=== PATIENT | female | born 1990 | race Caucasian/White ===

== ENCOUNTER → 2018-05-14 23:35 | Outpatient (CLI) | payer BC, SELFPAY ==
[2018-05-14 14:52] VITALS: BMI 22.6
[2018-05-14 23:55] LABS: ALB/GLOB Ratio 1.1 RATIO (0.9-2.4); AST(SGOT) 14 U/L (15-37); Alanine Aminotransfer ALT/SGPT 23 U/L (13-56); Albumin, Serum 4.1 g/dL (3.2-5.0); Alkaline Phosphatase 53 U/L (45-117); Anion Gap 3 (5-15); BUN 9 mg/dL (7-18); BUN/Creat Ratio 11.9 RATIO (10-20); Calcium,Total 8.7 mg/dL (8.5-10.1); Chloride 106 mmol/L (98-107); Creatinine, Serum 0.76 mg/dL (0.55-1.02); EST Glomerular Filtration Rate 99 mL/min (>60); Est Glom Filt Rate - Afr Amer 119 mL/min (>60); Globulin 3.8 g/dL (2.2-4.2); Glucose 92 mg/dL (74-106); Potassium 4.1 mmol/L (3.5-5.1); Protein, Total 7.9 g/dL (6.4-8.2); Sodium Level 137 mmol/L (136-145)
[2018-05-15] LABS: Absolute Neutrophil Count 5.3 X10^3/uL (2.0-7.7); Basophil# 0.05 X10^3/uL; Basophil% 0.6 % (0-1); Eosinophil# 0.23 X10^3/uL; Eosinophils% 2.9 % (0-5); Hematocrit 40.7 % (37-47); Hemoglobin 13.8 g/dl (12.0-15.0); Lymphocyte % 21.7 % (19-41); Mean Corp Hgb Conc 33.9 g/gl (32-36); Mean Corpuscular Hgb 31.8 pg (27.0-32.0); Mean Corpuscular Volume 93.8 fL (81-99); Mean Platelet Vol. 11.4 fl (6.2-12.0); Monocyte# 0.55 X10^3/uL; Neutrophil # 5.29 X10^3/uL (2.7-7.7); Neutrophil % 67.5 % (47-70); POSITIVE COUNT NO; POSITIVE DIFFERENTIAL NO; POSITIVE MORPHOLOGY NO; Platelet Count 244 K/mm3 (150-450); RBC Distribution Width CV 12.9 % (11.6-14.6); RBC Distribution Width SD 43.3 fl (35.1-43.9); Red Blood Count 4.34 M/mm3 (4.2-5.4); White Blood Count 7.8 K/mm3 (4.4-11.0)
== END ==
PROVIDERS: Referring Provider Nurse Practitioner; Visit Provider Nurse Practitioner
DX: F41.0 Panic disorder [episodic paroxysmal anxiety] (principal)
CPT/HCPCS: 80053; 85025

== ENCOUNTER → 2020-08-19 | Outpatient (CLI) | payer MEDICAID, SELFPAY ==
[2020-08-19 18:45] VITALS: BMI 22.3
[2020-08-19 21:53] LABS: Absolute Lymphocyte Count 2.78 X10^3/uL (0.83-4.51); Absolute Neutrophil Count 3.9 X10^3/uL (2.0-7.7); Basophil# 0.08 X10^3/uL; Eosinophil# 0.39 X10^3/uL; Hematocrit 36.4 % (37-47); Hemoglobin 12.2 g/dL (12.0-15.0); Lymphocyte # 2.78 X10^3/ul (4.0); Lymphocyte % 35.9 % (19-41); Mean Corp Hgb Conc 33.5 g/dL (32-36); Mean Corpuscular Hgb 31.5 pg (27.0-32.0); Mean Corpuscular Volume 94.1 fL (81-99); Mean Platelet Vol. 11.5 fl (6.2-12.0); Monocyte# 0.56 X10^3/uL; Monocyte% 7.2 % (0-10); NRBC Flagged by Analyzer 0 % (0-5); Neutrophil # 3.93 X10^3/uL (2.7-7.7); Neutrophil % 50.8 % (47-70); Platelet Count 246 K/mm3 (150-450); RBC Distribution Width CV 13.4 % (11.6-14.6); RBC Distribution Width SD 46.3 fl (35.1-43.9); Red Blood Count 3.87 M/mm3 (4.2-5.4); White Blood Count 7.8 K/mm3 (4.4-11.0)
[2020-08-19 22:08] LABS: ALB/GLOB Ratio 1.1 RATIO (0.9-2.4); AST(SGOT) 13 U/L (15-37); Alanine Aminotransfer ALT/SGPT 31 U/L (13-56); Albumin, Serum 3.7 g/dL (3.2-5.0); Alkaline Phosphatase 57 U/L (45-117); Anion Gap 6 (5-15); BUN 12 mg/dL (7-18); BUN/Creat Ratio 15.1 RATIO (10-20); Calcium,Total 8.7 mg/dL (8.5-10.1); Chloride 109 mmol/L (98-107); Creatinine, Serum 0.79 mg/dL (0.55-1.02); EST Glomerular Filtration Rate 92 mL/min (>60); Est Glom Filt Rate - Afr Amer 111 mL/min (>60); Globulin 3.4 g/dL (2.2-4.2); Glucose 90 mg/dL (74-106); Potassium 3.9 mmol/L (3.5-5.1); Protein, Total 7.1 g/dL (6.4-8.2); Sodium Level 140 mmol/L (136-145)
== END | disposition home or self-care (01) ==
PROVIDERS: Referring Provider Nurse Practitioner; Visit Provider Nurse Practitioner
DX: N63.20 Unspecified lump in the left breast, unspecified quadrant (principal); F41.0 Panic disorder [episodic paroxysmal anxiety]; F41.1 Generalized anxiety disorder
CPT/HCPCS: 80053; 85025

== ENCOUNTER → 2024-08-19 | Outpatient (CLI) | payer OTHER, MEDICAID, SELFPAY ==
--- NOTE | 2024-08-19 08:00 | CT_ITS ---
PROCEDURE: CT scan of the temporal bones. TECHNIQUE: Multiple axial tomographic images were obtained without intravenous contrast administration. Coronal and sagittal reconstruction was obtained as well. COMPARISON: None. FINDINGS: The temporal bones are unremarkable. The middle ear cavity is unremarkable. The internal auditory canal is unremarkable. There is evidence of mucosal retention cyst or polyp at the base of the right maxillary sinus. The visualized portions of the orbits are unremarkable. CT/Orb Sella Post Fossa Ear w/o IMPRESSION: Unremarkable examination of the temporal bones. One or more dose reduction techniques were used (e.g., Automated exposure contr ol, adjustment of the mA and/or kV according to patient size, use of iterative reconstruction technique). Reading Location: [facility]
== END | disposition home or self-care (01) ==
LOC: CT 07:56
PROVIDERS: PCP Nurse Practitioner; Referring Provider Otolaryngology; Visit Provider Otolaryngology
DX: H93.11 Tinnitus, right ear (principal)
CPT/HCPCS: 70480

== ENCOUNTER → 2025-02-02 | Outpatient (CLI) | payer OTHER, SELFPAY ==
--- OUTSIDE RECORDS SUMMARY | 2025-02-02 22:42 | XMS RPT_ITS | CCD ---
Author Organization [facility] Care Team Providers [place] Reporter Name Role Phone Bhargav Vang Primary Care Provider [phone] Bobby Cabrales DO Primary Care Provider Bhargav Vang Primary Care Provider [phone] Bobby Cabrales DO Primary Care Provider ALENA SPARKS Referring Unavailable PROVIDER, UNKNOWN Primary Care Unavailable BOBBY CABRALES Primary Care Unavailable ALENA SPARKS Attending Unavailable BOBBY CABRALES Primary Care Unavailable Dean [employer] DRIVER, Bhargav Primary Care Unavailable Marissa Baca Referring UnavailMarissa Keane Attending Unavaillakshmi Vang [employer]IVER-C, Bhargav Attending Provider Kay VEGA, Dr. Ernst Attending Provider Dr. Marissa Baca MD Referring Provider Dean [employer]-C, Bhargav Primary Care Provider Unavailable Primary Care Provider UnavailVICTOR HUGO Larsen Attending Unavailable JAMES ZUNIGA Referring Unavailable JAMES ZUNIGA Attending Unavailable MARISSA BACA Referring Unavaila ble JAMES ZUNIGA Attending Unavailable BHARGAV VANG Referring Unavailable BHARGAV VANG Attending Unavailable DEAN, BHARGAV Primary Care Unavailable VANG, BHARGAV Primary Care Unavailable VANG BHARGAV Referring Unavailable BHARGAV VANG Attending Unavailable Allergies Allergy Classification Reported Allergen(s) Allergy Type Date of Onset Reaction(s) Facility (1 source) dexchlorpheniramine Drug Allergy 3 [facility] Repository (1 source) Dextromethorphan Drug Allergy 3 [facility] Rep[facility] (1 source) Phenylephrine Drug Allergy 3 [facility] (1 source) dexchlorpheniramine Drug Allergy 3 [facility] (1 source) Dextromethorphan Drug Allergy 3 [facility] (1 source) Phenylephrine Drug Allergy 3 [facility] Medications Current Medications Medication Drug Class(es) Dates Sig (Normalized) Sig (Original) [id number] actuat albuterol 0.09 mg/actuat metered dose inhaler (11 sources) beta2-Adrenergic Agonist Start: 08-25-2022 take 2 puff(s) by inhalation every four hours as needed for wheezing albuterol HFA (PROAIR HFA) 90 mcg/actuation inhaler Indications: SOB (shortness of breath) Inhale 2 Puffs as instructed every 4 hours as needed for wheezing/shortnes s of breath. 2 Each 1 08/25/2022 Active Start: 02-17-2022 End: 02-16-2023 Albuterol Sulfate (Ventolin Hfa) 90 mcg/actuation HFA aerosol inhaler Active 2 NMA INHALATION Q4H as needed for asthma 8.5 February 16, 2023 6:43pm Comment on above: Inhale 2 Puffs as in structed every 4 hours as needed for wheezing/shortness of breath. amoxicillin 875 mg / clavulanate 125 mg oral tablet (3 sources) Penicillin-class Antibacterial Start: 07-15-19 End: 07-22-19 24 take 1 tablet by mouth twice daily amoxicillin-clavu lanate potassium (AUGMENTIN) 875-125 mg per tablet Indications: Acute otitis media, left Take 1 tablet by mouth two times a day for 7 days. 14 tablet 0 07/15/2023 07/22/2023 Active take 1 tablet by deisi th twice daily amoxicillin-clavulanate (AUGMENTIN) 875- 125 MG per tablet Take 1 tablet by mouth 2 times daily 0 Active Comment on above: Take 1 tablet by deisi th two times a day for 7 days. 60 actuat budesonide 0.09 mg/actuat dry powder inhaler (10 sources) Corticosteroid Start: 12-06-19 take 2 puff(s) by inhalation twice daily PULMICORT FLEXHALER 90 mcg/actuation aepb Indications: SOB (shortness of breath) INHALE 2 PUFFS INSTRUCTED TWICE DAILY. 6 Each 12/05/2022 Active Start: 08-25-2022 End: 11-23-2022 take 2 puff(s) by inhalation twice daily budesonide (PULMICORT FLEXHALER) 90 mcg/actuation aepb Indications: SOB (shortness of breath) Inhale 2 Puffs as instructed twice daily. 6 Each 0 08/25/2022 11/23/2022 Active Comment on above: Inhale 2 Puffs as in structed twice daily. Calcium Carbonate (9 sources) calcium carbonat e (TUMS ORAL) Take by mouth as needed. Active calcium carbonat e (TUMS ORAL) Take by mouth as needed. 0 Active Comment on above: Take by mouth as nee ded. cetirizine hydrochloride 10 mg oral tablet (1 source) Histamine-1 Receptor Antagonist Start: 10-03-19 End: 06-29-19 24 take 1 tablet by mouth once daily cetirizine (ZYRTEC) 10 mg tablet Indications: SOB (shortness of breath) Take 1 tablet by mouth once daily. 90 tablet 2 10/02/2022 06/29/2023 Active Comment on above: Take 1 tablet by deisi th once daily. hydrOXYzine hydrochloride 10 mg oral tablet (13 sources) Antihistamine Start: 02-18-20 End: 03-04-20 24 take 1 tablet by mouth three to four times daily as needed for anxiety Hydroxyzine Hcl 10 mg tablet Active 10 mg PO 3 to 4 times per day as needed for anxiety 60 March 04, 2024 6:23pm Comment on above: TAKE 1 TABLET BY DEISI TH THREE TO FOUR TIMES DAILY NEEDED FOR ANXIETY ibuprofen 600 mg oral tablet (11 sources) Nonsteroidal Anti-inflammatory Drug Start: 08-27-19 17 take 1 tablet by mouth every eight hours as needed ibuprofen (MOTRIN) 600 mg tablet Take 1 tablet by mouth every 8 hours as needed. 08/26/2016 Active Comment on above: Take 1 tablet by deisi th every 8 hours as needed. oseltamivir 75 mg oral capsule (2 sources) Neuraminidase Inhibitor Start: 08-27-19 17 take 1 capsule by mouth twice daily oseltamivir (TAMIFLU) 75 MG capsule Take 1 capsule by mouth 2 times daily 10 capsule 0 08/26/2016 Active sertraline 100 mg oral tablet (20 sources) Serotonin Reuptake Inhibitor Start: 02-18-20 End: 02-18-20 take 2 tablets by mouth once daily Sertraline 50 mg tablet Discontinued 100 mg PO daily February 17, 2022 12:00am February 17, 2022 8:02pm Start: 04-08-2021 End: 02-17-2022 Sertraline 50 mg tablet Disc ontinued 75 mg PO daily 45 April 08, 2021 4:49pm February 17, 2022 5:54pm Start: 11-17-2020 End: 03-04-2024 take 1 tablet by mouth once daily Sertraline 100 mg tablet Active 100 mg PO daily March 04, 2024 6:23pm Start: 01-30-2018 End: 04-08-2021 take 1 tablet by mouth once daily Sertraline 50 mg tablet Discontinued 50 mg PO daily August 19, 2020 7:47pm April 08, 2021 4:46pm Start: 01-30-2018 End: 01-30-2018 take 50 mg by mouth once daily Sertraline (Zoloft) 20 mg/mL concentrate Discontinued 50 mg PO daily January 30, 2018 12:00am January 30, 2018 3:43pm take 1 tablet by deisi th once daily Comment on above: Take 100 mg by mouth once daily. Completed/Discontinued Medications Medication Drug Class(es) Dates Sig (Normalized) Sig (Original) acetaminophen 325 mg oral tablet (1 source) Start: 01-24-2021 End: 01-24-2021 acetaminophen (TYLENOL) tablet 650 mg ALPRAZolam 0.5 mg oral tablet (2 sources) Benzodiazepine Start: 01-30-2018 End: 05-14-2018 take 1 tablet by mouth once daily as needed for anxiety Alprazolam 0.5 mg tablet Discontinued 0.5 mg PO daily as needed for anxiety January 30, 2018 3:55pm May 14, 2018 3:58pm amoxicillin 875 mg oral tablet (2 sources) Penicillin-class Antibacterial Start: 06-12-2023 End: 01-18-2024 take 1 tablet by mouth twice daily Amoxicillin 875 mg tablet Discontinued 875 mg PO TWICE A DAY June 12, 2023 4:41pm January 18, 2024 5:10pm Start: 05-10-2020 End: 08-19-2020 take 1 tablet by mouth twice daily Amoxicillin 875 mg tablet Discontinued 875 mg PO TWICE A DAY May 10, 2020 1:00am August 19, 2020 7:46pm azithromycin 250 mg oral tablet (2 sources) Macrolide Antimicrobial Start: 06-10-2024 End: 06-15-2024 take 2 tablets by mouth once daily, then take 1 tablet by mouth once daily at mealtime Azithromycin 250 mg tablet Discontinued 250 mg PO daily 11 27June 10, 2024 1:00am June 14, 2024 1:00am June 15, 2024 1:10am 2 po qd for 1 day then 1 po qd for 4 days with food or after eating Start: 07-07-2019 End: 07-12-2019 take 2 tablets by mouth once daily, then take 1 tablet by mouth once daily at mealtime Azithromycin 250 mg tablet Discontinued 250 mg PO daily 11 27July 07, 2019 1:00am July 11, 2019 1:00am July 12, 2019 1:08am 2 po qd for 1 day then 1 po qd for 4 days with food or after eating 12 hr buPROPion hydrochloride 150 mg extended release oral tablet (5 sources) Aminoketone Start: 07-07-2019 End: 08-06-2019 take 1 tablet by mouth once daily Bupropion Hcl 150 mg tablet sustained-release 12 hr Discontinued 150 mg PO daily July 07, 2019 1:00am August 05, 2019 1:00am August 06, 2019 1:07am Start: 01-30-2018 End: 01-30-2018 take 1 tablet by mouth once daily Bupropion Hcl (Wellbutrin Sr) 100 mg tablet extended release 12 hr Discontinued 100 mg PO daily January 30, 2018 12:00am January 30, 2018 3:42pm Start: 01-30-2018 End: 07-07-2019 take 1 tablet by mouth once daily in the morning Bupropion Hcl 150 mg tablet extended release 24 hr Discontinued 150 mg PO EVERY MORNING May 14, 2018 3:58pm July 07, 2019 4:57pm cyclobenzaprine hydrochloride 5 mg oral tablet (1 source) Muscle Relaxant Start: 01-18-2024 End: 06-10-2024 take 1 tablet by mouth three times daily as needed for muscle spasms Cyclobenzaprine 5 mg tablet Discontinued 5 mg PO THREE TIMES A DAY as needed for muscle spasm January 18, 2024 12:00am June 10, 2024 8:23pm fluconazole 150 mg oral tablet (1 source) Azole Antifungal Start: 02-16-2023 End: 06-12-2023 take 1 tablet by mouth once daily Fluconazole 150 mg tablet Discontinued 150 mg PO DAILY February 16, 2023 12:00am June 12, 2023 4:38pm hydrALAZINE hydrochloride 10 mg oral tablet (1 source) Arteriolar Vasodilator Start: 05-14-2018 End: 07-07-2019 take 1 tablet by mouth three times daily as needed for anxiety Hydralazine 10 mg tablet Discontinued 10 mg PO THREE TIMES A DAY as needed for anxiety May 14, 2018 1:00am July 07, 2019 4:56pm predniSONE 20 mg oral tablet (2 sources) Start: 06-12-2023 End: 03-04-2024 take 2 tablets by mouth once daily Prednisone 20 mg tablet Discontinued 40 mg PO DAILY January 18, 2024 12:00am March 04, 2024 6:22pm venlafaxine 37.5 mg oral tablet (2 sources) Serotonin and Norepinephrine Reuptake Inhibitor Start: 04-28-2021 End: 02-17-2022 take 1 tablet by mouth once daily Venlafaxine 37.5 mg tablet Discontinued 37.5 mg PO DAILY May 26, 2021 5:40pm February 17, 2022 5:35pm Problems Active Problems Problem Classification Problem Date Documented Da te Episodic/Chronic Anxiety disorders (3 sources) Generalized anxiety disorder; Translations: [Generalized anxiety disorder] Chronic Asthma (1 source) Asthma; Translations: [Unspecified asthma, uncomplicated] 02-17-2022 Chronic Cardiac dysrhythmias (3 sources) Palpitations; Translations: [Palpitations] Onset: 01-21-2024 01-21-2024 Episodic Chronic obstructive pulmonary disease and bronchiectasis (1 source) Bronchitis; Translations: [Bronchitis, not specified as acute or chronic] 05-25-2022 Episodic Conditions associated with dizziness or vertigo (12 sources) Dizziness and giddiness; Translations: [Dizziness and giddiness] Onset: 10-16-2024 10-16-2024 Episodic Headache; including migraine (7 sources) Headache disorder; Translations: [Other headache syndrome] Onset: 10-16-2024 10-16-2024 Episodic Immunizations and screening for infectious disease (1 source) Viral screening status; Translations: [Encounter for screening for other viral diseases] Episodic Mycoses (1 source) Candidiasis of mouth; Translations: [Candidal stomatitis] 02-16-2023 Episodic Nonmalignant breast conditions (1 source) Breast lump; Translations: [Unspecified lump in the left breast, unspecified quadrant] 08-19-2020 Episodic Other circulatory disease (1 source) Clearing throat - hawking; Translations: [Other specified symptoms and signs involving the circulatory and respiratory systems] 10-31-2021 Episodic Other connective tissue disease (1 source) Radicular pain; Translations: [Neuralgia and neuritis, unspecified] 01-18-2024 Episodic Other ear and sense organ disorders (1 source) Tinnitus, right ear; Translations: [Tinnitus, right ear] Onset: 09-03-2024 Episodic Other ear and sense organ disorders (1 source) Bilateral subjective tinnitus of ears; Translations: [Tinnitus, bilateral] 12-08-2024 Episodic Other lower respiratory disease (4 sources) Dyspnea; Translations: [Shortness of breath] Episodic Other lower respiratory disease (1 source) Chronic cough; Translations: [Chronic cough] Episodic Other lower respiratory disease (1 source) Cough; Translations: [Cough] 07-07-2019 Episodic Other non-traumatic joint disorders (1 source) Pain in right shoulder; Translations: [Right shoulder pain] 01-18-2024 Episodic Other upper respiratory disease (1 source) Feeling of lump in throat; Translations: [Sensation of lump in throat] 10-31-2021 Episodic Other upper respiratory infections (2 sources) Viral upper respiratory tract infection; Translations: [Acute upper respiratory infection, unspecified] 07-15-2023 Episodic Otitis media and related conditions (2 sources) Acute left otitis media; Translations: [Otitis media, unspecified, left ear] 07-15-2023 Episodic Residual codes; unclassified (1 source) Generalized aches and pains; Translations: [Pain, unspecified] 05-10-2020 Episodic Skull and face fractures (1 source) Closed fracture of nasal bones; Translations: [Fracture of nasal bones, initial encounter for closed fracture] Episodic Spondylosis; intervertebral disc disorders; other back problems (8 sources) Lumbago co-occurrent with right-side sciatica; Translations: [Lumbago with sciatica, right side] Onset: 12-13-2024 12-13-2024 Episodic Superficial injury; contusion (1 source) Abrasion of nose; Translations: [Abrasion of nose, initial encounter] Episodic Past or Other Problems Problem Classification Problem Date Documented Da te Episodic/Chronic Other connective tissue disease (4 sources) Neuropathy; Translations: [Neuralgia and neuritis, unspecified] Onset: 01-19-2024 01-19-2024 Episodic Other connective tissue disease (1 source) Neuralgia and neuritis, unspecified; Translations: [Neuralgia and neuritis, unspecified] Onset: 01-19-2024 Episodic Unclassified (1 source) 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 Normal [facility] Study Interpretation of outs agata studyon 11-18-2024 Outside images for comparison or treatment purposes, not interpreted by Radiologists. IMAGING Orb Sella Post Fossa Ear w/o on 08-19-2024 Orb Sella Post Fossa Ear w/o [facility] Imaging Services [address] [place] [id number] Orb Sella Post Fossa Ear w/o MR#: [id number] Acct: [id number] Name: RANDA MURGUIA Rep #: [id number] : 1990 F 33 From: Cristiano mccrary MD PCP: BRADFORD MosquedaC Status: [facility] Study: Orb Sella Post Fossa Ear w/o Date of Exam: Exam# [id number] Ordering Dr: Marissa Baca MD PROCEDURE: CT scan of the temporal bones. TECHNIQUE: Multiple axial tomographic images were obtained without intravenous contrast administration. Coronal and sagittal reconstruction was obtained as well. COMPARISON: None. FINDINGS: The temporal bones are unremarkable. The middle ear cavity is unremarkable. The internal auditory canal is unremarkable. There is evidence of mucosal retention cyst or polyp at the base of the right maxillary sinus. The visualized portions of the orbits are unremarkable. CT/Orb Sella Post Fossa Ear w/o IMPRESSION: Unremarkable examination of the temporal bones. One or more dose reduction techniques were used (e.g., Automated exposure control, adjustment of the mA and/or kV according to patient size, use of iterative reconstruction technique). Reading Location: [id number] CC: JACK Vang; Dr. Marissa Baca MD Bilingual Inside Sales Representative: Signed [facility] 02-19-2024 [facility] RANDA MURGUIA ([id number]) 1990 F Date Time Provider Department 02/19/24 ALENA SPARKS During your visit today, we recorded the following information about you: Alena Sparks APRN.INCIDENT COORDINATOR 02/19/2024 12:10 PM Signed Zio did not reveal any concerning rhythms, mostly sinus with one run of SVT and her triggered events correlated with sinus rhythm. How are palpitations? If still present/ bothersome we could try a low dose beta patti daily and see how they are. Would need to monitor BP/HR at home occasionally Frances Argueta, SAVANNA 02/19/2024 12:53 PM Signed Spoke with pt, reviewed below message. Verbalized understanding, no further questions. Pt reports palpitations have basically ceased Aware to contact office if symptoms return at any point No further questions at this time Allergies As of Date: 02/19/2024 (No Known Allergies) Date Reviewed: 01/21/2024 Reviewed by: Linda De La Cruz MA - Fully Assessed Reason for Visit: Results [95] Prescriptions as of 02/19/2024 - PULMICORT FLEXHALER 90 mcg/actuation aepb INHALE 2 PUFFS INSTRUCTED TWICE DAILY. - hydrOXYzine HCl (ATARAX) 10 mg tablet TAKE 1 TABLET BY MOUTH THREE TO FOUR TIMES DAILY NEEDED FOR ANXIETY - ibuprofen (MOTRIN) 600 mg tablet Take 1 tablet by mouth every 8 hours as needed. - calcium carbonate (TUMS ORAL) Take by mouth as needed. - albuterol HFA (PROAIR HFA) 90 mcg/actuation inhaler Inhale 2 Puffs as instructed every 4 hours as needed for wheezing/shortness of breath. - sertraline (ZOLOFT) 100 mg tablet Take 100 mg by mouth once daily. Problem List As Of Date: 02/19/2024 (None) Encounter Status:Closed by FRANCES ARGUETA on 02/19/24 [facility] 01-28-2024 [facility] Telephone (FAM[facility]) RANDA MURGUIA ([id number]) 1990 F Date Time Provider Department 01/28/24 ALENA SPARKS During your visit today, we recorded the following information about you: Cari Valadez 01/28/2024 8:18 AM Signed Patient saw Alena Sparks last week. She said Alena told her to wear the Zio monitor for 7 days. When she received the monitor, the instructions say to wear it for 14 days. Wants clarification. Please call her at [phone]. Alena Sparks APRN.JEANNINE 01/28/2024 2:56 PM Signed I double checked my order and it was placed correctly for 7 days so should be able to send back now Alena Sparks APRN.Margie Gonzalez, RN 01/28/2024 3:01 PM Signed Notified patient. Patient verbalizes understanding and has no other questions or concerns at this time. Margie Cook RN Allergies As of Date: 01/28/2024 (No Known Allergies) Date Reviewed: 01/21/2024 Reviewed by: Linda De La Cruz MA - Fully Assessed Reason for Visit: Question: how long to wear Zio monitor [Other] Prescriptions as of 01/28/2024 - PULMICORT FLEXHALER 90 mcg/actuation aepb INHALE 2 PUFFS INSTRUCTED TWICE DAILY. - hydrOXYzine HCl (ATARAX) 10 mg tablet TAKE 1 TABLET BY MOUTH THREE TO FOUR TIMES DAILY NEEDED FOR ANXIETY - ibuprofen (MOTRIN) 600 mg tablet Take 1 tablet by mouth every 8 hours as needed. - calcium carbonate (TUMS ORAL) Take by mouth as needed. - albuterol HFA (PROAIR HFA) 90 mcg/actuation inhaler Inhale 2 Puffs as instructed every 4 hours as needed for wheezing/shortness of breath. - sertraline (ZOLOFT) 100 mg tablet Take 100 mg by mouth once daily. Problem List As Of Date: 01/28/2024 (None) Encounter Status:Closed by MARGIE COOK on 01/28/24 [facility] 01-24-2024 [facility] RANDA MURGUIA ([id number]) 1990 F Date Time Provider Department [facility] your visit today, we recorded the following information about you: Cari Valadez 01/24/2024 1:46 PM Signed Patient said she saw Alena Sparks on Sunday and a Zio monitor was ordered, but she still hasn't received it. Said she was told it would be sent out within 24 hours. Please callher at [phone] for clarification on when she should get it. Naomi Zapata RN 01/24/2024 3:53 PM Signed Call to patient, no answer. Detailed message left on VM. Delivery is typically 3-5 business days. Order was placed 1600 Sunday. Number for Zio given if not received ([phone]) or can contact Fab at [employer]. Allergies As of Date: 01/24/2024 (No Known Allergies) Date Reviewed: 01/21/2024 Reviewed by: Linda De La Cruz MA - Fully Assessed Reason for Visit: Still hasn't rec'd Zio monitor [Other] Prescriptions as of 01/24/2024 - PULMICORT FLEXHALER 90 mcg/actuation aepb INHALE 2 PUFFS INSTRUCTED TWICE DAILY. - hydrOXYzine HCl (ATARAX) 10 mg tablet TAKE 1 TABLET BY MOUTH THREE TO FOUR TIMES DAILY NEEDED FOR ANXIETY - ibuprofen (MOTRIN) 600 mg tablet Take 1 tablet by mouth every 8 hours as needed. - calcium carbonate (TUMS ORAL) Take by mouth as needed. - albuterol HFA (PROAIR HFA) 90 mcg/actuation inhaler Inhale 2 Puffs as instructed every 4 hours as needed for wheezing/shortness of breath. - sertraline (ZOLOFT) 100 mg tablet Take 100 mg by mouth once daily. Problem List As Of Date: 01/24/2024 (None) Encounter Status:Closed by NAOMI ZAPATA on 01/24/24 Normal [facility] XR Cervical spine 4 or 5 Vie wson 01-24-2024 Impression: Normal cervical spine radiographs. Report Dictated on Electronically Signed By: Mc Cruz MD Electronically Signed Date/Time: 01/24/2024 12:39 PM T [facility] Patient Name: RANDA MURGUIA : 1990 Exam Date/Time: 01/19/2024 09:28 Procedure: XR CERVICAL SPINE COMPLETE 4-5 VIEWS Ordering Provider: VANG DORA Reason For Exam: m79.2 Examination: Cervical spine Clinical Indication: Pain Comparison: None Findings: AP, lateral, oblique, and odontoid views of the cervical spine are provided. No cortical or trabecular irregularity to suggest a fracture. Straightening of the typical lordosis. No significant anterolisthesis or retrolisthesis. The vertebral body and disc heights appear grossly maintained. No evidence of prevertebral soft tissue swelling. The odontoid is intact on the AP odontoid open-mouth view. [facility] Mc Cruz MD - 01/24/2024 [facility] 1990 [id number] Exam Date/Time: 01/19/2024 09:28 Procedure: XR CERVICAL SPINE COMPLETE 4-5 VIEWS Ordering Provider: VANG DORA Reason For Exam: m79.2 Examination: Cervical spine Clinical Indication: Pain Comparison: None Findings: AP, lateral, oblique, and odontoid views of the cervical spine are provided. No cortical or trabecular irregularity to suggest a fracture. Straightening of the typical lordosis. No significant anterolisthesis or retrolisthesis. The vertebral body and disc heights appear grossly maintained. No evidence of prevertebral soft tissue swelling. The odontoid is intact on the AP odontoid open-mouth view. IMPRESSION: Impression: Normal cervical spine radiographs. Report Dictated on Electronically Signed By: Mc Cruz MD Electronically Signed Date/Time: 01/24/2024 12:39 PM EDT [employer] XR Cervical spine 4 or 5 Vie wsOrdered By: Mc Cruz on 01-24-2024 [employer] Work Phone: CBC W Auto Differential pane l (Bld)on 01-21-2024 Basophils (Bld) [#/Vol] NINF [facility] Basophils/100 WBC (Bld) 0.3 % [facility] Differential cell count method Nom (Bld) Auto [facility] Eosinophils (Bld) [#/Vol] NINF [facility] Eosinophils/100 WBC (Bld) 0.0 % [facility] Erythrocyte distribution width (RBC) [Ratio] 13.0 % 11.5 - 15.0 % [facility] Hematocrit (Bld) [Volume fraction] 40.4 % 36.0 - 46.0 % [facility] Hemoglobin (Bld) [Mass/Vol] 13.6 g/dL 11.5 - 15.5 g/dL [facility] Immature granulocytes (Bld) [#/Vol] NINF [facility] Immature granulocytes/100 WBC (Bld) 0.3 % [facility] Interpretation and review of laboratory results Abnormal [facility] Lymphocytes (Bld) [#/Vol] 0.98 10*3/uL Low [facility] Lymphocytes/100 WBC (Bld) 12.8 % [facility] MCH (RBC) [Entitic mass] 29.6 pg 26.0 - 34.0 pg [facility] MCHC (RBC) [Mass/Vol] 33.7 g/dL 30.5 - 36.0 g/dL [facility] MCV (RBC) [Entitic vol] 88.0 fL 80.0 - 100.0 fL [facility] Monocytes (Bld) [#/Vol] 0.23 10*3/uL [facility] Monocytes/100 WBC (Bld) 3.0 % [facility] Neutrophils (Bld) [#/Vol] 6.38 10*3/uL [facility] Neutrophils/100 WBC (Bld) 83.6 % [facility] Nucleated RBC (Bld) [#/Vol] [facility] Nucleated RBC/100 WBC (Bld) [Ratio] 0.0 % /100 WBC [facility] Platelet mean volume (Bld) [Entitic vol] 10.5 fL 9.0 - 12.7 fL [facility] Platelets (Bld) [#/Vol] 328 10*3/uL [facility] RBC (Bld) [#/Vol] 4.59 10*6/uL 3.90 - 5.2 0 m/uL [facility] WBC (Bld) [#/Vol] 7.63 10*3/uL [facility] Basophils (Bld) [#/Vol] 10*3/uL Normal <0.11 [facility] Comment on above: Order Comment: Speci men Type: BLOOD SPECIMEN Ordering Facility: [facility] Address: [address] [place] [address] Performed By: #### 5 7021-8 #### [facility] CLIA [id number] [address] [place] [address] [facility] Basophils/100 WBC (Bld) 0.3 % Normal [facility] Comment on above: Order Comment: Speci men Type: BLOOD SPECIMEN Ordering Facility: [facility] Address: [facility] [place] [address] Performed By: #### 5 7021-8 #### [facility] CLIA [id number] [address] [place] [address] [place] Differential cell count method Nom (Bld) Auto Normal [facility] Comment on above: Order Comment: Speci men Type: BLOOD SPECIMEN Ordering Facility: [facility] Address: [address] [place] [address] Performed By: #### 5 7021-8 #### [facility] CLIA [id number] [address] [place] [address] [place] Eosinophils (Bld) [#/Vol] 10*3/uL Normal <0.46 [facility] Comment on above: Order Comment: Speci men Type: BLOOD SPECIMEN Ordering Facility: [facility] Address: [address] [place] [address] Performed By: #### 5 7021-8 #### [facility] CLIA [id number] [address] [place] [address] [place] Eosinophils/100 WBC (Bld) 0.0 % Normal [facility] Comment on above: Order Comment: Speci men Type: BLOOD SPECIMEN Ordering Facility: [facility] Address: [address] [place] [address] Performed By: #### 5 7021-8 #### [facility] CLIA [id number] [address] [place] [address] [place] Erythrocyte distribution width (RBC) [Ratio] 13.0 % Normal 11.5-15.0 [facility] Comment on above: Order Comment: Speci men Type: BLOOD SPECIMEN Ordering Facility: [facility] Address: [address] [place] [address] Performed By: #### 5 7021-8 #### [facility] CLIA [id number] [address] [place] Hematocrit (Bld) [Volume fraction] 40.4 % Normal 36.0-46.0 [facility] Comment on above: Order Comment: Speci men Type: BLOOD SPECIMEN Ordering Facility: [facility] Address: [address] [place] [address] Performed By: #### 5 7021-8 #### [facility] CLIA [id number] [address] [place] [address] [place] Hemoglobin (Bld) [Mass/Vol] 13.6 g/dL Normal 11.5-15.5 [facility] Comment on above: Order Comment: Speci men Type: BLOOD SPECIMEN Ordering Facility: [facility] Address: [address] [place] [address] Performed By: #### 5 7021-8 #### [facility] CLIA [id number] [address] [place] [address] [place] Immature granulocytes (Bld) [#/Vol] 10*3/uL Normal <0.10 [facility] Comment on above: Order Comment: Speci men Type: BLOOD SPECIMEN Ordering Facility: [facility] Address: [address] [place] [address] Performed By: #### 5 7021-8 #### [facility] CLIA [id number] [address] [place] [address] [place] Immature granulocytes/100 WBC (Bld) 0.3 % Normal [facility] Comment on above: Order Comment: Speci men Type: BLOOD SPECIMEN Ordering Facility: [facility] Address: [address] [place] [address] Performed By: #### 5 7021-8 #### [facility] CLIA [id number] [address] [place] [address] [place] Lymphocytes (Bld) [#/Vol] 0.98 10*3/uL Low 1.00-4.00 [facility] Comment on above: Order Comment: Speci men Type: BLOOD SPECIMEN Ordering Facility: [facility] Address: [address] [place] [address] Performed By: #### 5 7021-8 #### [facility] CLIA [id number] [address] [place] Lymphocytes/100 WBC (Bld) 12.8 % Normal [facility] Comment on above: Order Comment: Speci men Type: BLOOD SPECIMEN Ordering Facility: [facility] Address: [address] [place] [address] Performed By: #### 5 7021-8 #### [facility] CLIA [id number] [address] MCH (RBC) [Entitic mass] 29.6 pg Normal 26.0-34.0 [facility] Comment on above: Order Comment: Speci men Type: BLOOD SPECIMEN Ordering Facility: [facility] Address: [address] [place] [address] Performed By: #### 5 7021-8 #### [facility] CLIA [id number] [address] MCHC (RBC) [Mass/Vol] 33.7 g/dL Normal 30.5-36.0 [facility] Comment on above: Order Comment: Speci men Type: BLOOD SPECIMEN Ordering Facility: [facility] Address: [address] [place] [address] Performed By: #### 5 7021-8 #### [facility] CLIA [id number] [address] [place] [facility] MCV (RBC) [Entitic vol] 88.0 fL Normal 80.0-100.0 [facility] Comment on above: Order Comment: Speci men Type: BLOOD SPECIMEN Ordering Facility: [facility] Address: [address] [place] [address] Performed By: #### 5 7021-8 #### [facility] CLIA [id number] [address] Monocytes (Bld) [#/Vol] 0.23 10*3/uL Normal <0.87 [facility] Comment on above: Order Comment: Speci men Type: BLOOD SPECIMEN Ordering Facility: [facility] Address: [address] [place] [address] Performed By: #### 5 7021-8 #### [facility] CLIA [id number] [address] Monocytes/100 WBC (Bld) 3.0 % Normal [facility] Comment on above: Order Comment: Speci men Type: BLOOD SPECIMEN Ordering Facility: [facility] Address: [address] [place] [address] Performed By: #### 5 7021-8 #### [facility] CLIA [id number] [address] [place] [address] [place] Neutrophils (Bld) [#/Vol] 6.38 10*3/uL Normal 1.45-7.50 [facility] Comment on above: Order Comment: Speci men Type: BLOOD SPECIMEN Ordering Facility: [facility] Address: [address] [place] [address] Performed By: #### 5 7021-8 #### [facility] CLIA [id number] [address] Neutrophils/100 WBC (Bld) 83.6 % Normal [facility] Comment on above: Order Comment: Speci men Type: BLOOD SPECIMEN Ordering Facility: [facility] Address: [address] [place] [address] Performed By: #### 5 7021-8 #### [facility] CLIA [id number] [address] [place] Nucleated RBC (Bld) [#/Vol] 10*3/uL Normal <0.01 [facility] Comment on above: Order Comment: Speci men Type: BLOOD SPECIMEN Ordering Facility: [facility] Address: [address] [place] [address] Performed By: #### 5 7021-8 #### [facility] CLIA [id number] [address] Nucleated RBC/100 WBC (Bld) [Ratio] 0.0 /100 WBC Normal [facility] Comment on above: Order Comment: Speci men Type: BLOOD SPECIMEN Ordering Facility: [facility] Address: [address] [place] [address] Performed By: #### 5 7021-8 #### [facility] CLIA [id number] [address] OF [place] Platelet mean volume (Bld) [Entitic vol] 10.5 fL Normal 9.0-12.7 [facility] Comment on above: Order Comment: Speci men Type: BLOOD SPECIMEN Ordering Facility: [facility] Address: [address] [place] [address] Performed By: #### 5 7021-8 #### [facility] CLIA [id number] [address] [place] Platelets (Bld) [#/Vol] 328 10*3/uL Normal 150-400 [facility] Comment on above: Order Comment: Speci men Type: BLOOD SPECIMEN Ordering Facility: [facility] Address: [address] [place] [address] Performed By: #### 5 7021-8 #### [facility] CLIA [id number] [address] OF [place] RBC (Bld) [#/Vol] 4.59 10*6/uL Normal 3.90-5.20 [facility] Comment on above: Order Comment: Speci men Type: BLOOD SPECIMEN Ordering Facility: [facility] Address: [address] [place] [address] Performed By: #### 5 7021-8 #### [facility] CLIA [id number] [address] OF [place] WBC (Bld) [#/Vol] 7.63 10*3/uL Normal 3.70-11.00 [facility] Comment on above: Order Comment: Speci men Type: BLOOD SPECIMEN Ordering Facility: [facility] Address: [address] [place] [address] Performed By: #### 5 7021-8 #### [facility] CLIA [id number] [address] OF [place] CNOVon 01-21-2024 CNOV Office Visit ([facility] ) RANDA MURGUIA ([id number]) 1990 F Date Time Provider Department 01/21/24 3:40 PM ALENA SPARKS During your visit today, we recorded the following information about you: Temperature Pulse Respiration Blood pressure 97.9 degrees 70/minute 16/minute 108/74 Weight Last Period 67.8 kg 01/07/24 Linda De La Cruz MA 01/21/2024 4:13 PM Signed Depression Screening Never done Anxiety Screening Never done HIV Screening Never done Hepatitis B Vaccine(1 of 3 - 19+ 3-dose series) Never done Cervical Cancer Screening Never done Covid-19 Vaccine( season) Never done Alena Sparks APRN.CNP 01/21/2024 4:13 PM Signed ESTABLISHED PATIENT Randa Murguia is a 33 year old female presenting for Follow Up (Heart palpitations every all day long). HISTORY OF PRESENT ILLNESS Started with these episodes one week ago Feels like a skipped beat and then a heavier heart beat then it returns to normal Denies SOB, does have some chest pain but directly related to shoulder movement (getting treatment for injured R shoulder as well) These episodes happen all throughout the day, can happen both at rest and exertion No relation to eating Does not wake her at night Does not feel like anxiety No other illnesses or bowel issues Has cut out caffeine for a couple days (down to one coffee and one coke) and its not helping symptoms Stopped her allergy pill to see if helped but it did not help (cetirizine) 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 No past surgical history on file. Social History Tobacco Use Smoking status: Former Types: Cigarettes Quit date: 2019 Years since quittin.5 Smokeless tobacco: Never Allergies: ALLERGIES No Known Allergies Medications: ibuprofen (MOTRIN) 600 mg tablet Take 1 tablet by mouth every 8 hours as needed. calcium carbonate (TUMS ORAL) Take by mouth as needed. albuterol HFA (PROAIR HFA) 90 mcg/actuation inhaler Inhale 2 Puffs as instructed every 4 hours as needed for wheezing/shortness of breath. sertraline (ZOLOFT) 100 mg tablet Take 100 mg by mouth once daily. PULMICORT FLEXHALER 90 mcg/actuation aepb INHALE 2 PUFFS INSTRUCTED TWICE DAILY. (Patient not taking: Reported on 01/21/2024) hydrOXYzine HCl (ATARAX) 10 mg tablet TAKE 1 TABLET BY MOUTH THREE TO FOUR TIMES DAILY NEEDED FOR ANXIETY (Patient not taking: Reported on 01/21/2024) REVIEW OF SYSTEMS See HPI PHYSICAL EXAM BP 108/74 Pulse 70 Temp 36.6 ?C (97.9 ?F) (Temporal) Resp 16 Wt 67.8 kg (149 lb 7.6 oz) LMP 01/07/2024 (Approximate) SpO2 99% BMI 27.34 kg/m? General: Well developed, well nourished, in no acute distress. Head: Normocephalic, atraumatic. Neck: Supple. Eyes: Normal conjunctiva, no scleral icterus. Lungs: Clear to auscultation bilaterally, no rubs, no wheezing. Cardiac: Regular rate and rhythm. No murmurs, gallops, or rubs. Extremities: No edema. ASSESSMENT: (R00.2) Palpitations (primary encounter diagnosis) PLAN: - EKG nsr, check labs - zio - continue cutting caffeine - to let us know if anything worsens or changes in the mean time Alena Sparks APRN.INCIDENT COORDINATOR Allergies As of Date: 01/21/2024 (No Known Allergies) Date Reviewed: 01/21/2024 Reviewed by: Linda De La Cruz MA - Fully Assessed Reason for Visit: Follow Up [171] Cmt: Heart palpitations every all day long Primary Visit Diagnosis:Palpitations [R00.2] Order(s):THYROID STIMULATING HORMONE [SQTSH] Order #: [id number] FUTURE T4 FREE/FREE THYROXINE [SQFT4] Order #: [id number] FUTURE MAGNESIUM [SQMG1] Order #: [id number] FUTURE COMPREHENSIVE METABOLIC PANEL [SQCMP] Order #: [id number] FUTURE COMPLETE BLOOD COUNT AND DIFFERENTIAL [SQCBCDIF] Order #: [id number] FUTURE OUTSIDE VENDOR CARDIAC OUTPATIENT EXTENDED RHYTHM RECORDING (WITHOUT TELEMETRY) [7152687] Order #: [id number]: 1 Prescriptions as of 01/21/2024 - PULMICORT FLEXHALER 90 mcg/actuation aepb INHALE 2 PUFFS INSTRUCTED TWICE DAILY. - hydrOXYzine HCl (ATARAX) 10 mg tablet TAKE 1 TABLET BY MOUTH THREE TO FOUR TIMES DAILY NEEDED FOR ANXIETY - ibuprofen (MOTRIN) 600 mg tablet Take 1 tablet by mouth every 8 hours as needed. - calcium carbonate (TUMS ORAL) Take by mouth as needed. - albuterol HFA (PROAIR HFA) 90 mcg/actuation inhaler Inhale 2 Puffs as instructed every 4 hours as needed for wheezing/shortness of breath. - sertraline (ZOLOFT) 100 mg tablet Take 100 mg by mouth once daily. Problem List As Of Date: 01/21/2024 (more content not included)... Normal [facility] Comprehensive metabolic 2000 panelon 01-21-2024 Albumin [Mass/Vol] 4.4 g/dL 3.9 - 4.9 g/dL [facility] ALP [Catalytic activity/Vol] 62 U/L 34 - 123 U/L [facility] ALT [Catalytic activity/Vol] 9 U/L 7 - 38 U/L [facility] Anion gap [Moles/Vol] 11 mmol/L 8 - 15 mmol/L [facility] AST [Catalytic activity/Vol] 12 U/L Low 13 - 35 U/L [facility] Bilirubin [Mass/Vol] 0.2 mg/dL 0.2 - 1 .3 mg/dL [facility] Calcium [Mass/Vol] 9.4 mg/dL 8.5 - 10. 2 mg/dL [facility] Chloride [Moles/Vol] 103 mmol/L 98 - 10 7 mmol/L [facility] CO2 [Moles/Vol] 22 mmol/L 22 - 30 mmol/L [facility] Creatinine [Mass/Vol] 0.71 mg/dL 0.58 - 0.96 mg/dL [facility] GFR/1.73 sq M.predicted among non-blacks MDRD (S/P/Bld) [Vol rate/Area] 117 mL/min/{1.73_m2} - PINF [facility] Comment on above: Estimated Glomerular Filtration Rate (eGFR) is calculated using the 2020 CKD-EPI creatinine equation. This equation utilizes serum creatinine, sex, and age as parameters. The creatinine assay has traceable calibration to isotope dilution-mass spectrometry. Refer to KDIGO guidelines for clinical interpretation. In patients with unstable renal function, e.g. those with acute kidney injury, the eGFR may not accurately reflect actual GFR. Glucose [Mass/Vol] 110 mg/dL High 74 - 99 mg/dL [facility] Comment on above: The [place] Di[employer] s Association (ADA) provides guidance for cutoff values for fasting glucose and random glucose. The ADA defines fasting as no caloric intake for at least 8 hours. Fasting plasma glucose results between 100 to 125 mg/dL indicate increased risk for diabetes (prediabetes). Fasting plasma glucose results greater than or equal to 126 mg/dL meet the criteria for diagnosis of diabetes. In the absence of unequivocal hyperglycemia, results should be confirmed by repeat testing. In a patient with classic symptoms of hyperglycemia or hyperglycemic crisis, random plasma glucose results greater than or equal to 200 mg/dL meet the criteria for diagnosis of diabetes. Reference: Standards of Medical Care in Diabetes 2016, [place] [employer]. Diabetes Care. 2016.39(Suppl 1). Interpretation and review of laboratory results Abnormal [facility] Potassium [Moles/Vol] 4.4 mmol/L 3.7 - 5.1 mmol/L [facility] Protein [Mass/Vol] 8.0 g/dL 6.3 - 8.0 g/dL [facility] Sodium [Moles/Vol] 136 mmol/L 136 - 144 mmol/L [facility] Urea nitrogen [Mass/Vol] 21 mg/dL 7 - 21 mg/dL [facility] Albumin [Mass/Vol] 4.4 g/dL Normal 3.9-4.9 [facility] Comment on above: Order Comment: Trevor beckham Type: BLOOD SPECIMEN Ordering Facility: [facility] Address: [address] [place] [address] Performed By: #### 1 9123-9, 3016-3, 16835-4 #### [facility] CLIA [id number] [address] [place] [address] [place] ALP [Catalytic activity/Vol] 62 U/L Normal 34-123 [facility] Comment on above: Order Comment: Trevor beckham Type: BLOOD SPECIMEN Ordering Facility: [facility] Address: [address] [place] [address] Performed By: #### 1 9123-9, 3016-3, 28444-3 #### [facility] CLIA [id number] [address] [place] [address] [place] ALT [Catalytic activity/Vol] 9 U/L Normal 7-38 [facility] Comment on above: Order Comment: Speci men Type: BLOOD SPECIMEN Ordering Facility: [facility] Address: [address] [place] [address] Performed By: #### 1 9123-9, 3015-3, 37442-7 #### [facility] CLIA [id number] [address] [place] [address] [place] Anion gap [Moles/Vol] 11 mmol/L Normal 8-15 [facility] Comment on above: Order Comment: Speci men Type: BLOOD SPECIMEN Ordering Facility: [facility] Address: [address] [place] [address] Performed By: #### 1 9123-9, 3, 61449-5 #### [facility] CLIA [id number] [address] [place] [address] [place] AST [Catalytic activity/Vol] 12 U/L Low 13-35 [facility] Comment on above: Order Comment: Speci men Type: BLOOD SPECIMEN Ordering Facility: [facility] Address: [address] [place] [address] Performed By: #### 1 9123-9, 3, 25719-1 #### [facility] CLIA [id number] [address] [place] [address] [place] Bilirubin [Mass/Vol] 0.2 mg/dL Normal 0.2-1.3 [facility] Comment on above: Order Comment: Speci men Type: BLOOD SPECIMEN Ordering Facility: [facility] Address: [address] [place] [address] Performed By: #### 1 9123-9, 3, 43950-5 #### [facility] CLIA [id number] [address] [place] Calcium [Mass/Vol] 9.4 mg/dL Normal 8.5-10.2 [facility] Comment on above: Order Comment: Speci men Type: BLOOD SPECIMEN Ordering Facility: [facility] Address: [address] [place] [address] Performed By: #### 1 9123-9, 3016-3, 24108-1 #### [facility] CLIA [id number] [address] [place] [address] [place] Chloride [Moles/Vol] 103 mmol/L Normal 98-107 [facility] Comment on above: Order Comment: Speci men Type: BLOOD SPECIMEN Ordering Facility: [facility] Address: [address] [place] [address] Performed By: #### 1 9123-9, 6-3, 07989-5 #### [facility] CLIA [id number] [address] [place] [address] [place] CO2 [Moles/Vol] 22 mmol/L Normal 22-30 [facility] Comment on above: Order Comment: Speci men Type: BLOOD SPECIMEN Ordering Facility: [facility] Address: [address] [place] [address] Performed By: #### 1 9123-9, 6-3, 89138-9 #### [facility] CLIA [id number] [address] [place] [address] [place] Creatinine [Mass/Vol] 0.71 mg/dL Normal 0.58-0.96 [facility] Comment on above: Order Comment: Speci men Type: BLOOD SPECIMEN Ordering Facility: [facility] Address: [address] [place] [address] Performed By: #### 1 9123-9, 63, 91108-3 #### [facility] CLIA [id number] [address] Creatinine and Glomerular filtration rate.predicted panel (S/P/Bld) 117 mL/min/1.73m??? Normal >=60 [facility] Comment on above: Order Comment: Speci men Type: BLOOD SPECIMEN Ordering Facility: [facility] Address: [address] [place] [address] Result Comment: Radha mated Glomerular Filtration Rate (eGFR) is calculated using the 2020 CKD-EPI creatinine equation. This equation utilizes serum creatinine, sex, and age as parameters. The creatinine assay has traceable calibration to isotope dilution-mass spectrometry. Refer to KDIGO guidelines for clinical interpretation. In patients with unstable renal function, e.g. those with acute kidney injury, the eGFR may not accurately reflect actual GFR. Performed By: #### 1 9123-9, 3015-3, 09811-1 #### [facility] CLIA [id number] [address] [place] [address] [place] Glucose [Mass/Vol] 110 mg/dL High 74-99 [facility] Comment on above: Order Comment: Trevor beckham Type: BLOOD SPECIMEN Ordering Facility: [facility] Address: [address] [place] [address] Result Comment: The [place] Diabetes Association (ADA) provides guidance for cutoff values for fasting glucose and random glucose. The ADA defines fasting as no caloric intake for at least 8 hours. Fasting plasma glucose results between 100 to 125 mg/dL indicate increased risk for diabetes (prediabetes). Fasting plasma glucose results greater than or equal to 126 mg/dL meet the criteria for diagnosis of diabetes. In the absence of unequivocal hyperglycemia, results should be confirmed by repeat testing. In a patient with classic symptoms of hyperglycemia or hyperglycemic crisis, random plasma glucose results greater than or equal to 200 mg/dL meet the criteria for diagnosis of diabetes. Reference: Standards of Medical Care in Diabetes 2016, [place] [employer]. Diabetes Care. 2016.39(Suppl 1). Performed By: #### 1 9123-9, 3, #### [facility] CLIA [id number] [address] [place] [address] [place] Potassium [Moles/Vol] 4.4 mmol/L Normal 3.7-5.1 [facility] Comment on above: Order Comment: Trevor beckham Type: BLOOD SPECIMEN Ordering Facility: [facility] Address: [address] [place] [id number] Performed By: #### 1 9123-9, 3015-3, #### [facility] CLIA [id number] [address] [place] [address] [place] Protein [Mass/Vol] 8.0 g/dL Normal 6.3-8.0 [facility] Comment on above: Order Comment: Speci men Type: BLOOD SPECIMEN Ordering Facility: [facility] Address: [address] [place] [id number] Performed By: #### 1 9123-9, 3016-3, 83264-4 #### [facility] CLIA [id number] [address] Sodium [Moles/Vol] 136 mmol/L Normal 136-144 [facility] Comment on above: Order Comment: Speci men Type: BLOOD SPECIMEN Ordering Facility: [facility] Address: [address] [place] [address] Performed By: #### 1 9123-9, 3016-3, 88572-6 #### [facility] CLIA [id number] [address] [place] Urea nitrogen [Mass/Vol] 21 mg/dL Normal 7-21 [facility] Comment on above: Order Comment: Speci men Type: BLOOD SPECIMEN Ordering Facility: [facility] Address: [address] [place] [address] Performed By: #### 1 9123-9, 3016-3, 23476-9 #### [facility] CLIA [id number] [address] [facility] [id number] 01-21-2024 ECG01 Ventricular Rate : 6 1 BPM Atrial Rate : 61 BPM P-R Interval : 154 ms QRS Duration : 86 ms Q-T Interval : 400 ms QTC Calculation(Bazett) : 402 ms Calculated P [place] : 31 degrees Calculated R [place] : 46 degrees Calculated T [place] : 35 degrees NORMAL SINUS RHYTHM NORMAL ECG Confirmed by MD MEZA GREGORY () on 01/22/2024 4:55:05 PM NAME : RANDA MURGUIA PID : [id number] : 1990 Gender : Female Race : ORD : Procedure Date : Jan 21 2024 14:52:44 Edit Date : Jan 22 2024 16:55:10 Diagnosis: NORMAL SINUS RHYTHM NORMAL ECG Confirmed by MD MEZA GREGORY () on 01/22/2024 4:55:05 PM Test Reason : Location : 158 : [facility] Overread By : MD MEZA GREGORY Edited By : MD MEZA GREGORY Referred By : , Acquired by : linda bruce, Normal [facility] Free T4 [Mass/Vol]on 024 Interpretation and review of laboratory results Normal [facility] MAGNESIUMon 01-21-2024 Magnesium [Mass/Vol] 2.0 mg/dL 1.7 - 2 .3 mg/dL [facility] Magnesium SerPl-mCncon 01-20 Magnesium [Mass/Vol] 2.0 mg/dL Normal 1.7-2.3 [facility] Comment on above: Order Comment: Trevor beckham Type: BLOOD SPECIMEN Ordering Facility: [facility] Address: [address] [place] [address] Performed By: #### 1 9123-9, 3016-3, 01404-0 #### [facility] CLIA [id number] [address] [place] [id number] [place] Magnesium [Mass/Vol]on 01-20 Interpretation and review of laboratory results Normal [facility] No Panel Informationon 01-20 [facility] T4 FREE/FREE THYROXINEon Free T4 [Mass/Vol] 1.1 ng/dL 0.9 - 1.7 ng/dL [facility] T4 Free SerPl-mCncon Free T4 [Mass/Vol] 1.1 ng/dL Normal 0.9-1.7 [facility] Comment on above: Order Comment: Trevor beckhma Type: BLOOD SPECIMEN Ordering Facility: [facility] Address: [address] [place] [address] Performed By: #### 3 024-7 #### [facility] CLIA [id number] [address] [place] [address] [place] THYROID STIMULATING HORMONEo n 01-21-2024 TSH Qn 0.418 m[IU]/L [facility] Comment on above: If the patient is pr egnant, TSH reference range varies by gestational period: First Trimester (weeks 9-12): 0.180-2.990 mIU/L Second Trimester: 0.110-3.980 mIU/L Third Trimester: 0.480-4.710 mIU/L Epifanio Pastor et al. A Practical Approach for the Verifications and Determination of Site- and Trimester-Specific Reference Intervals for Thyroid Function tests in . Thyroid, 2019:29:3:412-420. bk Griffith al. 2017 Guidelines of the [place] Thyroid Association for the Diagnosis and Management of Thyroid Disease during and the . Thyroid, 2017:27:3:315-389. TSH Qnon 01-21-2024 Interpretation and review of laboratory results Normal [facility] TSH SerPl-aCncon 01-21-2024 TSH Qn 0.418 m[IU]/L Normal 0.270-4.200 [facility] Comment on above: Order Comment: Speci men Type: BLOOD SPECIMEN Ordering Facility: [facility] Address: [address] [place] [address] Result Comment: If t he patient is , TSH reference range varies by gestational period: First Trimester (weeks 9-12): 0.180-2.990 mIU/L Second Trimester: 0.110-3.980 mIU/L Third Trimester: 0.480-4.710 mIU/L rosibel Morales. A Practical Approach for the Verifications and Determination of Site- and Trimester-Specific Reference Intervals for Thyroid Function tests in . Thyroid, 2019:29:3:412-420. bk Griffith al. 2017 Guidelines of the [place] Thy[employer] for the Diagnosis and Management of Thyroid Disease during and the . Thyroid, 2017:27:3:315-389. Performed By: #### 1 9123-9, 3016-3, 99256-8 #### [facility] CLIA [id number] [address] [facility] XR Shoulder - right 2 Viewso n 01-21-2024 Unremarkable plain films of the right shoulder. Report Dictated on Electronically Signed By: Jewel Sierra MD Electronically Signed Date/Time: 01/21/2024 6:40 PM T [facility] Patient Name: RANDA MURGUIA : 1990 Exam Date/Time: 01/19/2024 09:28 Procedure: XR SHOULDER 2+ VIEWS RIGHT Ordering Provider: VANG DORA Reason For Exam: [id number] RIGHT SHOULDER CLINICAL INDICATION: Pain Three views of the right shoulder were obtained. COMPARISON: None. FINDINGS: No fracture or dislocation of the right shoulder is identified. There is no abnormal soft tissue swelling. The right acromioclavicular and glenohumeral joints appear grossly normal. [facility] Jewel Sierra MD - 01/21/2024 Patient Name: [facility]AN[facility] : 1990 [id number] Exam Date/Time: 01/19/2024 09:28 Procedure: XR SHOULDER 2+ VIEWS RIGHT Ordering Provider: VANG DORA Reason For Exam: [id number] RIGHT SHOULDER CLINICAL INDICATION: Pain Three views of the right shoulder were obtained. COMPARISON: None. FINDINGS: No fracture or dislocation of the right shoulder is identified. There is no abnormal soft tissue swelling. The right acromioclavicular and glenohumeral joints appear grossly normal. IMPRESSION: Unremarkable plain films of the right shoulder. Report Dictated on Electronically Signed By: Jewel Sierra MD Electronically Signed Date/Time: 01/21/2024 6:40 PM EDT [facility] XR Shoulder - right 2 ViewsO rdered By: Jewel Sierra on 01-21-2024 [facility] No Panel Informationon 01-18 Radiology Study observation (narrative) [facility] CNOVon 07-15-2023 CNOV Office Visit ([facility] ) RANDA MURGUIA ([id number]) 1990 F Date Time Provider Department 07/15/23 8:15 AM RITA BLANCO During your visit today, we recorded the following information about you: Temperature Pulse Respiration Blood pressure 97.9 degrees 80/minute 16/minute 116/71 Weight Height 65.2 kg 1.575 m Rita Blanco APRN.INCIDENT COORDINATOR 07/15/2023 9:18 AM Signed This note was created using Lucidity (MemberRx)riter. Subjective Randa Murguia is a 32 year old female. HPI by patient: Randa is a 32 year old presenting to the office with the complaint of URI Started approximately 2 weeks ago Associated symptoms include ear pain, congestion, PND, cough, states she's having body aches for 2 weeks ago Denies any other concerns Covid Immunization Dates Overdue - Covid-19 Vaccine (1) Never done No completion, postpone, frequency change, or communication history exists for this topic. Sick contacts: yes, whole family has been sick Smoking history/second hand smoke: no OTC tylenol cold and sinus No antibiotic use in the last 60 days. ALLERGIES No Known Allergies Family History Reviewed Including Cardiac Diseases, Psychiatric Diseases, AND Substance Abuse Problem: Colon Cancer Relation: Maternal Grandmother Age of Onset: (Not Specified) Problem: Breast Cancer Relation: Other Age of Onset: (Not Specified) Problem: Lung Cancer Relation: Other Age of Onset: (Not Specified) Problem: other (bladder cancer) Relation: Other Age of Onset: (Not Specified) Problem: Skin Cancer Relation: Other Age of Onset: (Not Specified) Problem: Colon Cancer Relation: Other Age of Onset: (Not Specified) Social History Tobacco Use Smoking status: Former Types: Cigarettes Quit date: 2019 Years since quittin.0 Smokeless tobacco: Never Review of Systems Constitutional: Negative for chills and fever. HENT: Positive for congestion, ear pain, postnasal drip, sinus pain and sore throat. Negative for rhinorrhea. Respiratory: Positive for cough. Cardiovascular: Negative for chest pain. Allergic/Immunologic: Negative for immunocompromised state. Hematological: Negative for adenopathy. Objective LMP 09/19/2022 (Approximate) Physical Exam Vitals and nursing note reviewed. HENT: Right Ear: Tympanic membrane and ear canal normal. Left Ear: Ear canal normal. Tympanic membrane is injected and erythematous. Tympanic membrane is not bulging. Nose: Congestion and rhinorrhea present. Mouth/Throat: Pharynx: Uvula midline. Posterior oropharyngeal erythema present. No oropharyngeal exudate. Cardiovascular: Rate and Rhythm: Normal rate and regular rhythm. Heart sounds: Normal heart sounds. Pulmonary: Effort: Pulmonary effort is normal. No respiratory distress. Breath sounds: Normal breath sounds. No stridor. No wheezing, rhonchi or rales. Chest: Chest wall: No tenderness. Lymphadenopathy: Cervical: No cervical adenopathy. Skin: General: Skin is warm and dry. Neurological: Mental Status: She is alert and oriented to person, place, and time. Assessment and Plan ASSESSMENT/PLAN: 1. Acute otitis media, left - ICD9: 382.9, ICD10: H66.92 (primary diagnosis) - Will begin treatment with as per antibiotic as written, see orders - Supportive care with plenty of fluids, rest, and analgesia prn. - AMOXICILLIN 875 MG-POTASSIUM CLAVULANATE 125 MG TABLET 2. Viral URI with cough - ICD9: 465.9, ICD10: J06.9 - Discussed viral etiology and rationale for treatment. - Symptomatic treatment with prn analgesia - Supportive care with fluids and rest Rita Blanco APRN.CNP Medical Decision Making: Problems: Moderate: New problem with uncertain prognosis Data: Unique source(s) for external note(s) reviewed: 1 Risk: Moderate: Drug management Medical Decision Making Level: 4 - Moderate Rita Blanco APRN.CNP 07/15/2023 8:46 AM Signed UPPER RESPIRATORY INFECTIONS Most cases are caused by viruses and most cases are mild, temporary, and harmless. Symptoms can last 2 to 3 weeks and can include: nasal congestion, sore throat, coughing, muscles aches, headaches, nausea, diarrhea, fatigue and fever. 1. Drink plenty of fluids. 2. Get lots of rest. 3. Avoid dehydrants such as caffeine and alcohol. 4. Nasal saline is an effective decongestant and be used frequently throughout the day. 5. To loosen phlegm and help coughing, drink plenty of fluids and using a humidifier. 6. For sore throats, it is ok to use cough drops, throat sprays, or gargling warm salt water. 7. Always cover your mouth when you cough or sneeze, and wash your hands frequently. Avoid crowded areas like shopping centers, movies while you are sick so you don't picker operator a different virus, or infect other (more content not included)... Normal [facility] CBC W Auto Differential pane l (Bld)on 10-02-2022 Basophils (Bld) [#/Vol] 0.07 10*3/uL <0.11 k/uL [facility] Basophils/100 WBC (Bld) 0.9 % [facility] Differential cell count method Nom (Bld) Auto [facility] Eosinophils (Bld) [#/Vol] 0.14 10*3/uL <0.46 k/uL [facility] Eosinophils/100 WBC (Bld) 1.8 % [facility] Erythrocyte distribution width (RBC) [Ratio] 12.2 % 11.5 - 15.0 % [facility] Hematocrit (Bld) [Volume fraction] 40.9 % 36.0 - 46.0 % [facility] Hemoglobin (Bld) [Mass/Vol] 14.1 g/dL 11.5 - 15.5 g/dL [facility] Immature granulocytes (Bld) [#/Vol] <0.10 k/uL [facility] Immature granulocytes/100 WBC (Bld) 0.3 % [facility] Lymphocytes (Bld) [#/Vol] 1.94 10*3/uL 1.00 - 4.00 k/uL [facility] Lymphocytes/100 WBC (Bld) 25.5 % [facility] MCH (RBC) [Entitic mass] 31.8 pg 26.0 - 34.0 pg [facility] MCHC (RBC) [Mass/Vol] 34.5 g/dL 30.5 - 36.0 g/dL [facility] MCV (RBC) [Entitic vol] 92.3 fL 80.0 - 100.0 fL [facility] Monocytes (Bld) [#/Vol] 0.50 10*3/uL <0.87 k/uL [facility] Monocytes/100 WBC (Bld) 6.6 % [facility] Neutrophils (Bld) [#/Vol] 4.95 10*3/uL 1.45 - 7.50 k/uL [facility] Neutrophils/100 WBC (Bld) 64.9 % [facility] Nucleated RBC (Bld) [#/Vol] <0.01 k/uL [facility] Nucleated RBC/100 WBC (Bld) [Ratio] 0.0 /100 WBC [facility] Platelet mean volume (Bld) [Entitic vol] 10.7 fL 9.0 - 12.7 fL [facility] Platelets (Bld) [#/Vol] 221 10*3/uL 150 - 400 k/uL [facility] RBC (Bld) [#/Vol] 4.43 10*6/uL 3.90 - 5.2 0 m/uL [facility] WBC (Bld) [#/Vol] 7.62 10*3/uL 3.70 - 11. 00 k/uL [facility] Comprehensive metabolic 2000 panelon 10-02-2022 Albumin [Mass/Vol] 4.5 g/dL 3.9 - 4.9 g/dL [facility] ALP [Catalytic activity/Vol] 59 U/L 34 - 123 U/L [facility] ALT [Catalytic activity/Vol] 13 U/L 7 - 38 U/L [facility] Anion gap [Moles/Vol] 9 mmol/L 9 - 18 mmol/L [facility] AST [Catalytic activity/Vol] 20 U/L 13 - 35 U/L [facility] Bilirubin [Mass/Vol] 0.3 mg/dL 0.2 - 1 .3 mg/dL [facility] Calcium [Mass/Vol] 9.5 mg/dL 8.5 - 10. 2 mg/dL [facility] Chloride [Moles/Vol] 104 mmol/L 97 - 10 5 mmol/L [facility] CO2 [Moles/Vol] 24 mmol/L 22 - 30 mmol/L [facility] Creatinine [Mass/Vol] 0.69 mg/dL 0.58 - 0.96 mg/dL [facility] Estimated Glomerular Filtration Rate 121 mL/min/1.73m >=60 mL/min/1.73m [facility] Glucose [Mass/Vol] 86 mg/dL 74 - 99 mg/dL [facility] Potassium [Moles/Vol] 4.9 mmol/L 3.7 - 5.1 mmol/L [facility] Protein [Mass/Vol] 7.7 g/dL 6.3 - 8.0 g/dL [facility] Sodium [Moles/Vol] 137 mmol/L 136 - 144 mmol/L [facility] Urea nitrogen [Mass/Vol] 13 mg/dL 7 - 21 mg/dL [facility] HEP C AB IA W/CONF SCRNon HCV Ab Ql (S) Negative Negative [facility] HbA1c (Bld)on 10-02-2022 Average glucose Estimated from glycated hemoglobin (Bld) [Mass/Vol] 94 mg/dL [facility] HbA1c (Bld) [Mass fraction] 4.9 % 4.3 - 5.6 % [facility] Lipid 1996 panelon Cholesterol [Mass/Vol] 169 mg/dL <200 mg/dL [facility] Cholesterol in HDL [Mass/Vol] 41 mg/dL >39 mg/dL [facility] Cholesterol in LDL [Mass/Vol] 106 mg/dL High <100 mg/dL [facility] Cholesterol in LDL/Cholesterol in HDL [Mass ratio] 2.59 {ratio} High <2.54 [facility] Cholesterol in VLDL [Mass/Vol] 22 mg/dL <30 mg/dL [facility] Cholesterol non HDL [Mass/Vol] 128 mg/dL <130 mg/dL [facility] Cholesterol.total/Ch olesterol in HDL [Mass ratio] 4.12 {ratio} <5.10 [facility] Fasting Time 12 hrs [facility] Triglyceride [Mass/Vol] 108 mg/dL <150 mg/dL [facility] TSH BLDon 10-02-2022 TSH Qn 1.080 m[IU]/L 0.270 - 4.200 mIU/L [facility] HCG QUAL UR B/Oon 08-25-2022 status Negative neg - [facility] Quality Check Yes [facility] No Panel Informationon 08-[address] [facility] [address] Facial Bones WO ContrastO rdered By: Walter Elizabeth on 01-24-2021 Patient Name: RANDA MURGUIA Computed Tomography ACCESSION EXAM DATE/TIME PROCEDURE ORDERING PROVIDER [id number] 01/24/2021 11:[address] Maxillofacial w/o MD ANDRADE, WALTER Contrast CPT code 70058 Reason For Exam (CT Maxillofacial w/o Contrast) facial injury Report Maxillofacial CT without intravenous contrast, 01/24/2021. Reason for examination: Injury to the nose. COMPARISON: None available. TECHNIQUE: 1 mm axial images were maxillofacial region. No intravenous contrast was coronal and sagittal and reviewed. FINDINGS: There are mildly displaced bilateral nasal bone fractures. There is soft tissue swelling with small amount of soft tissue gas superficial to the nasal bones. Findings are consistent with soft tissue injury in this area. The nasal septum appears grossly intact. No other fracture is identified. There is patchy mucosal thickening in the paranasal sinuses with a polyp or retention cyst in the antrum of the right maxillary sinus, measuring approximately 1.4 cm in maximum dimension. Orbital contents appear grossly intact. IMPRESSION: Nasal bone fractures and soft tissue injury to bridge of the nose. Report Dictated on --- Final --- Dictating Physician: MD HUGHES JOE M Signed Date and Time: 01/24/2021 11:32 am Signed by: MD HUGHES JOE M Transcribed Date and Time: 01/24/2021 11:33 [facility] Work Phone: Rico, Patricia Incoming Radiology Results From [facility] - 01/24/2021 11:33 AM EDT [facility]: [id number] Tomography ACCESSION EXAM DATE/TIME PROCEDURE ORDERING PROVIDER [id number] 01/24/2021 11:[address] Maxillofacial w/o MD ANDRADE, WALTER Contrast CPT code 13602 Reason For Exam (CT Maxillofacial w/o Contrast) facial injury Report Maxillofacial CT without intravenous contrast, 01/24/2021. Reason for examination: Injury to the nose. COMPARISON: None available. TECHNIQUE: 1 mm axial images were maxillofacial region. No intravenous contrast was coronal and sagittal and reviewed. FINDINGS: There are mildly displaced bilateral nasal bone fractures. There is soft tissue swelling with small amount of soft tissue gas superficial to the nasal bones. Findings are consistent with soft tissue injury in this area. The nasal septum appears grossly intact. No other fracture is identified. There is patchy mucosal thickening in the paranasal sinuses with a polyp or retention cyst in the antrum of the right maxillary sinus, measuring approximately 1.4 cm in maximum dimension. Orbital contents appear grossly intact. IMPRESSION: Nasal bone fractures and soft tissue injury to bridge of the nose. Report Dictated on --- Final --- Dictating Physician: MD HUGHES JOE M Signed Date and Time: 01/24/2021 11:32 am Signed by: MD HUGHES JOE M Transcribed Date and Time: 01/24/2021 11:33 [facility] Work Phone: [facility] Work Phone: CT Maxillofacial w/o Contras ton 01-24-2021 CT Maxillofacial w/o Contrast Patient [facility]: [id number] Computed Tomography ACCESSION EXAM DATE/TIME PROCEDURE ORDERING PROVIDER [id number] 01/24/2021 11:[address] Maxillofacial w/o MD ANDRADE, WALTER Contrast CPT code 15821 Reason For Exam (CT Maxillofacial w/o Contrast) facial injury Report Maxillofacial CT without intravenous contrast, 01/24/2021. Reason for examination: Injury to the nose. COMPARISON: None available. TECHNIQUE: 1 mm axial images were maxillofacial region. No intravenous contrast was coronal and sagittal and reviewed. FINDINGS: There are mildly displaced bilateral nasal bone fractures. There is soft tissue swelling with small amount of soft tissue gas superficial to the nasal bones. Findings are consistent with soft tissue injury in this area. The nasal septum appears grossly intact. No other fracture is identified. There is patchy mucosal thickening in the paranasal sinuses with a polyp or retention cyst in the antrum of the right maxillary sinus, measuring approximately 1.4 cm in maximum dimension. Orbital contents appear grossly intact. IMPRESSION: Nasal bone fractures and soft tissue injury to bridge of the nose. Report Dictated on Final Dictating Physician: MD HUGHES JOE M Signed Date and Time: 01/24/2021 11:32 am Signed by: MD ELLEN, CELESTINO Mendez Date and Time: 01/24/2021 11:33 [facility] MG Cancer Risk Surveyon 08-24 MG Cancer Risk Survey Patient Name: RANDA MURGUIA Mammography ACCESSION EXAM DATE/TIME PROCEDURE ORDERING PROVIDER [id number] 09/16/2020 11:35 EDT MG Cancer Risk Survey JEANNINE VANG, BHARGAV Pastor Reason For Exam (MG Cancer Risk Survey) palpable lump Report Cancer Risk Assessment: This risk assessment is based on patient provided information collected in a risk survey taken by the patient. Lifetime breast cancer risk: 13.52% - If greater than or equal to 20%, consider annual mammogram and annual screening Breast MRI or follow up in high risk clinic. Is the patient at elevated risk based on the HBOC criteria? No (Hereditary Breast and Ovarian Cancer) - If yes, consider genetic counseling and testing with high risk follow up. HNPCC mutation risk (Acosta Syndrome): 1% - if greater than or equal to 5%, consider genetic counseling, testing and screening colonoscopy. Report Dictated on Final Dictated: 09/16/2020 11:01 am Dictating Physician: DO WHITEHEAD RACHEL Signed Date and Time: 09/16/2020 11:01 am Signed by: DO WHITEHEAD RACHEL [facility] Patient Name: RANDA MURGUIA Mammography ACCESSION EXAM DATE/TIME PROCEDURE ORDERING PROVIDER [id number] 09/16/2020 11:35 EDT MG Cancer Risk Survey JEANNINE VANG DORA L Reason For Exam (MG Cancer Risk Survey) palpable lump Report Cancer Risk Assessment: This risk assessment is based on patient provided information collected in a risk survey taken by the patient. Lifetime breast cancer risk: 13.52% - If greater than or equal to 20%, consider annual mammogram and annual screening Breast MRI or follow up in high risk clinic. Is the patient at elevated risk based on the HBOC criteria? No (Hereditary Breast and Ovarian Cancer) - If yes, consider genetic counseling and testing with high risk follow up. HNPCC mutation risk (Acosta Syndrome): 1% - if greater than or equal to 5%, consider genetic counseling, testing and screening colonoscopy. Report Dictated on --- Final --- Dictated: 09/16/2020 11:01 am Dictating Physician: DO WHITEHEAD RACHEL Signed Date and Time: 09/16/2020 11:01 am Signed by: DO WHITEHEAD RACHEL [facility] Work Phone: Rico, Patricia Incoming Radiology Results From [facility] - 09/16/2020 11:35 AM EDT Patient Name: RANDA MURGUIA Mammography ACCESSION EXAM DATE/TIME PROCEDURE ORDERING PROVIDER [id number] 09/16/2020 11:35 EDT MG Cancer Risk Survey JEANNINE VANG, BHARGAV Pastor Reason For Exam (MG Cancer Risk Survey) palpable lump Report Cancer Risk Assessment: This risk assessment is based on patient provided information collected in a risk survey taken by the patient. Lifetime breast cancer risk: 13.52% - If greater than or equal to 20%, consider annual mammogram and annual screening Breast MRI or follow up in high risk clinic. Is the patient at elevated risk based on the HBOC criteria? No (Hereditary Breast and Ovarian Cancer) - If yes, consider genetic counseling and testing with high risk follow up. HNPCC mutation risk (Acosta Syndrome): 1% - if greater than or equal to 5%, consider genetic counseling, testing and screening colonoscopy. Report Dictated on --- Final --- Dictated: 09/16/2020 11:01 am Dictating Physician: DO WHITEHEAD RACHEL Signed Date and Time: 09/16/2020 11:01 am Signed by: DO WHITEHEAD RACHEL [facility] Work Phone: US Breast Limited Lefton US Breast Limited Left Patient Name: RANDA MURGUIA Ultrasound ACCESSION EXAM DATE/TIME PROCEDURE ORDERING PROVIDER [id number] 09/16/2020 10:40 EDT US Breast Limited Left VAGN, INCIDENT COORDINATOR, BHARGAV L CPT code 60669 Reason For Exam (US Breast Limited Left) palpable lump Report INDICATED PROBLEM: Indicated problem(s): left breast palpable abnormality for 2 months Left breast pain. PROCEDURE: US BREAST LIMITED LEFT: SEPTEMBER 16, 2020 - . FINDINGS: Patient presents for a palpable area of concern within the left breast. ULTRASOUND: Targeted sonographic evaluation of the patient's palpable area of concern at the 6:00 region 3 cm from nipple. Extensive evaluation within this region demonstrates no evidence of a mass or focal abnormality. IMPRESSION: No evidence of a mass or focal abnormality to correspond the patient's palpable area of concern. ASSESSMENT: Category 1 Negative RECOMMENDATION: Physical exam/clinical correlation of the left breast. Clinical follow-up for the palpable area of concern within the left breast. Routine screening mammogram of both breasts. Screening mammograms to begin at the age of 40. . Report Dictated on Final Signed Date and Time: 09/16/2020 11:01 am Signed by: DO WHITEHEAD RACHEL [facility] Vital Signs Date Time Vital Sign Value Performing Clinician Humberto laguna 10-16-2024 08:11-0400 Body height 162.6 cm James Zuniga MD Work Phone: [facility] 10-16-2024 08:11-0400 Body mass index (BMI) [Ratio] 23.52 kg/m2 James Zuniga MD Work Phone: [facility] 10-16-2024 08:11-0400 Body temperature 98.6 [degF] James Zuniga MD Work Phone: [facility] 10-16-2024 08:11-0400 Body weight 62.14 kg James Zuniga MD Work Phone: [facility] 06-10-2024 19:21-0500 Body height 158.[address] Marissa Baca MD Work Phone: [facility] 06-10-2024 19:21-0500 Body mass index (BMI) [Ratio] 25.5 kg/m2 Dr. Marissa Baca MD Work Phone: [facility] 06-10-2024 19:21-0500 Body temperature 97.7 [degF] Dr. Marissa Baca MD Work Phone: [facility] 06-10-2024 19:21-0500 Body weight 64.[address] Marissa Baca MD Work Phone: [facility] 06-10-2024 19:21-0500 Diastolic blood pressure 60 mm[Hg] Dr. Marissa Baca MD Work Phone: [facility] 06-10-2024 19:21-0500 Heart rate 70 /min Dr. Marissa Baca MD Work Phone: [facility] 06-10-2024 19:21-0500 Respiratory rate 18 /min Dr. Marissa Baca MD Work Phone: [facility] 06-10-2024 19:21-0500 SaO2% (BldA) [Mass fraction] 99 % Dr. Marissa Baca MD Work Phone: [facility] 06-10-2024 19:21-0500 Systolic blood pressure 115 mm[Hg] Dr. Marissa Baca MD Work Phone: [facility] 01-21-2024 15:37-0400 Body mass index (BMI) [Ratio] 27.34 kg/m2 Alena Sparks APRN.INCIDENT COORDINATOR Work Phone: [facility] 01-21-2024 15:37-0400 Body temperature 97.9 [degF] Alena Sparks APRN.INCIDENT COORDINATOR Work Phone: [facility] 01-21-2024 15:37-0400 Body weight 67.8 kg Alena Sparks APRN.INCIDENT COORDINATOR Work Phone: [facility] 01-21-2024 15:37-0400 Diastolic blood pressure 74 mm[Hg] Alena Sparks APRN.INCIDENT COORDINATOR Work Phone: [facility] 01-21-2024 15:37-0400 Heart rate 70 /min Alena Ti MENTAL HEALTH COORDINATOR.INCIDENT COORDINATOR Work Phone: [facility] 01-21-2024 15:37-0400 Respiratory rate 16 /min Alena Ti MENTAL HEALTH COORDINATOR.INCIDENT COORDINATOR Work Phone: [facility] 01-21-2024 15:37-0400 SaO2% (BldA) [Mass fraction] 99 % Alena Ti MENTAL HEALTH COORDINATOR.INCIDENT COORDINATOR Work Phone: [facility] 01-21-2024 15:37-0400 Systolic blood pressure 108 mm[Hg] Alena Ti MENTAL HEALTH COORDINATOR.INCIDENT COORDINATOR Work Phone: [facility] 07-15-2023 09:00-0500 Body height 157.5 cm Rita Ball MENTAL HEALTH COORDINATOR.INCIDENT COORDINATOR Work Phone: [facility] 07-15-2023 09:00-0500 Body temperature 97.9 [degF] Rita Ball MENTAL HEALTH COORDINATOR.INCIDENT COORDINATOR Work Phone: [facility] 07-15-2023 09:00-0500 Body weight 65.2 kg Rita Ball MENTAL HEALTH COORDINATOR.INCIDENT COORDINATOR Work Phone: [facility] 07-15-2023 09:00-0500 Diastolic blood pressure 71 mm[Hg] Rita Ball MENTAL HEALTH COORDINATOR.INCIDENT COORDINATOR Work Phone: [facility] 07-15-2023 09:00-0500 Heart rate 80 /min Rita Ball MENTAL HEALTH COORDINATOR.INCIDENT COORDINATOR Work Phone: [facility] 07-15-2023 09:00-0500 Respiratory rate 16 /min Rita Ball MENTAL HEALTH COORDINATOR.INCIDENT COORDINATOR Work Phone: [facility] 07-15-2023 09:00-0500 SaO2% (BldA) [Mass fraction] 98 % Rita Ball MENTAL HEALTH COORDINATOR.INCIDENT COORDINATOR Work Phone: [facility] 07-15-2023 09:00-0500 Systolic blood pressure 116 mm[Hg] Rita Ball MENTAL HEALTH COORDINATOR.INCIDENT COORDINATOR Work Phone: [facility] 10-02-2022 09:10-0400 Body height 157.5 cm Vincent Evens DO Work Phone: [facility] 10-02-2022 09:10-0400 Body temperature 97.11 [degF] Vincent Evens DO Work Phone: [facility] 10-02-2022 09:10-0400 Body weight 58.51 kg Vincent Evens DO Work Phone: [facility] 10-02-2022 09:10-0400 Diastolic blood pressure 60 mm[Hg] Vincent Evens DO Work Phone: [facility] 10-02-2022 09:10-0400 Heart rate 83 /min Vincent Evens DO Work Phone: [facility] 10-02-2022 09:10-0400 Respiratory rate 18 /min Vincent Evens DO Work Phone: [facility] 10-02-2022 09:10-0400 SaO2% (BldA) [Mass fraction] 98 % Vincent Evens DO Work Phone: [facility] 10-02-2022 09:10-0400 Systolic blood pressure 98 mm[Hg] Vincent Evens DO Work Phone: [facility] 08-25-2022 11:17-0500 Body height 157.5 cm Vincent Evens DO Work Phone: [facility] 08-25-2022 11:17-0500 Body temperature 98.91 [degF] Vincent Evens DO Work Phone: [facility] 08-25-2022 11:17-0500 Body weight 58.51 kg Vincent Evens DO Work Phone: [facility] 08-25-2022 11:17-0500 Diastolic blood pressure 70 mm[Hg] Vincent Evens DO Work Phone: [facility] 08-25-2022 11:17-0500 Heart rate 84 /min Vincent Evens DO Work Phone: [facility] 08-25-2022 11:17-0500 Respiratory rate 18 /min Bobby Cabrales DO Work Phone: [facility] 08-25-2022 11:17-0500 SaO2% (BldA) [Mass fraction] 98 % Bobby Cabrales DO Work Phone: [facility] 08-25-2022 11:17-0500 Systolic blood pressure 109 mm[Hg] Bobby Cabrales DO Work Phone: [facility] 01-24-2021 11:56-0400 Diastolic blood pressure 71 mm[Hg] Walter Elizabeth MD Work Phone: [facility] Work Phone: 01-24-2021 11:56-0400 Heart rate 57 /min Walter Elizabeth MD Work Phone: [facility] Work Phone: 01-24-2021 11:56-0400 Respiratory rate 16 /min Walter Elizabeth MD Work Phone: [facility] Work Phone: 01-24-2021 11:56-0400 SaO2% (BldA) [Mass fraction] 99 % Walter Elizabeth MD Work Phone: [facility] Work Phone: 01-24-2021 11:56-0400 Systolic blood pressure 101 mm[Hg] Walter Elizabeth MD Work Phone: [facility] Work Phone: 01-24-2021 10:40-0400 Body height 157.5 cm Walter Elizabeth MD Work Phone: [facility] Work Phone: 01-24-2021 10:40-0400 Body mass index (BMI) [Ratio] 27.44 kg/m2 Walter Elizabeth MD Work Phone: [facility] Work Phone: 01-24-2021 10:40-0400 Body temperature 98.49 [degF] Walter Elizabeth MD Work Phone: [facility] Work Phone: 01-24-2021 10:40-0400 Body weight 68.04 kg Walter Elizabeth MD Work Phone: [facility] Work Phone: Encounters Encounter Date Encounter Type Care Provider Facility Start: 12-13-2024 End: 12-13-2024 Subsequent hospital visit by physician Bhargav Vang Work Phone: [facility] Radiology Comment on above: Lumbago with sciatic a, right side; Radiculopathy, site unspecified Start: 12-13-2024 End: 12-13-2024 ambulatory BHARGAV VANG [facility] Start: 12-08-2024 End: 12-08-2024 Office outpatient visit 25 minutes James Zuniga MD Work Phone: 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; Facial pain Start: 12-08-2024 End: 12-08-2024 ambulatory [facility] Start: 11-18-2024 End: 11-18-2024 Subsequent hospital visit by physician Rad External Film [facility] Comment on above: Arrived Start: 11-18-2024 End: 11-18-2024 ambulatory JAMES Oakes [facility] Start: 11-04-2024 End: 11-04-2024 ambulatory VICTOR HUGO [facility] Start: 10-16-2024 End: 10-16-2024 Office outpatient new 45 minutes James Zuniga MD Work Phone: [facility] Comment on above: Dizziness and giddin ess; Other headache syndrome Start: 10-16-2024 End: 10-16-2024 ambulatory [facility] Start: 08-19-2024 End: 08-19-[address] Marissa Baca MD Work Phone: [facility] Work Phone: Start: 08-19-2024 End: 08-19-[address] Marissa Baca MD -Cat Scan, [facility] Work Phone: Start: 08-19-2024 End: 08-19-2024 ambulatory Bhargav Vang [employer] Facility:[facility] Start: 02-19-2024 End: 02-19-2024 Telephone encounter Alena Sparks MENTAL HEALTH COORDINATOR.INCIDENT COORDINATOR Work Phone: [facility] Comment on above: Results Start: 01-28-2024 Telephone encounter Alena Alexis MENTAL HEALTH COORDINATOR.INCIDENT COORDINATOR Work Phone: [facility] Comment on above: Question: how long t o wear Zio monitor Start: 01-24-2024 Telephone encounter Bobby mahan DO Work Phone: [facility] Comment on above: Still hasn't rec'd Z io monitor Start: 01-21-2024 End: 01-21-2024 ambulatory ALENA SPARKS Facility:[facility] Start: 01-21-2024 End: 01-21-2024 Office outpatient visit 15 minutes Alena Sparks MENTAL HEALTH COORDINATOR.INCIDENT COORDINATOR Work Phone: [facility] Comment on above: Palpitations (Primar y Dx) Start: 01-19-2024 End: 04-19-2024 Subsequent hospital visit by physician Bhargav Vang Work Phone: [facility] Radiology Comment on above: Neuralgia and neurit is, unspecified Neuralgia and neurit is, unspecified (Primary Dx) Start: 01-19-2024 End: 01-19-2024 ambulatory BHARGAV VANG [facility] Start: 07-15-2023 End: 07-15-2023 ambulatory BOBBY CABRALES Facility:[facility] Start: 07-15-2023 End: 07-15-2023 Office outpatient visit 10 minutes Rita Blanco APRN.CNP Work Phone: [facility] Comment on above: Acute otitis media, left (Primary Dx); Viral URI with cough Start: 10-02-2022 End: 10-02-2022 Office outpatient visit 25 minutes Jesseejeremías Villarealnnan Work Phone: [facility] Comment on above: SOB (shortness of br eath) (Primary Dx); Special screening examination for viral disease Start: 08-31-2022 End: 08-31-2022 ambulatory Pulm Work Phone: [facility] Medicine Comment on above: Spirometry Start: 08-31-2022 End: 08-31-2022 Patient encounter procedure Pulm [facility]ct [facility] Work Phone: [facility] Start: 08-25-2022 End: 08-25-2022 Subsequent hospital visit by physician [facility] Radiology Comment on above: SOB (shortness of br eath) [R06.02] Start: 08-25-2022 End: 08-25-2022 Office outpatient new 45 minutes Bobby Cedenoan Work Phone: [facility] Comment on above: SOB (shortness of br eath) (Primary Dx); LIZZIE (generalized anxiety disorder); Chronic cough Start: 01-24-2021 End: 01-24-2021 Emergency department patient visit Walter Elizabeth MD Work Phone: [facility] ED Comment on above: Closed fracture of n nhung bone, initial encounter (Primary Dx); Abrasion of nose, initial encounter Start: 09-16-2020 End: 09-16-2020 Subsequent hospital visit by physician Bhargav Vang Work Phone: [facility] Procedures Date Procedure Procedure Detail Performing Clinician Start: 11-18-2024 Study Interpretation of outside study James Zuniga MD Work Phone: Start: 08-19-2024 CT of head without contrast Dr. Marissa Baca MD Work Phone: Start: 08-31-2022 Brncdilat rspse spmt ry pre&post-brncdilat admn Bobby Cabrales DO Work Phone: Start: 08-25-2022 Urine test visual color cmprsn meths Bobby Cabrales DO Work Phone: Start: 08-25-2022 Radiologic exam ches t 2 views Bobby Cabrales DO Work Phone: Start: 01-24-2021 Ct maxillofacial w/o contrast material Walter Elizabeth MD Work Phone: Start: 09-16-2020 MG CANCER RISK SURVEY D lenora Vang Work Phone: Plan of Treatment Date Care Activity Detail Author Start: 11-21-2067 RSV Immunization for Adults (1 - 1-dose 75+ series) RSV Immunization for Adults (1 - 1-dose 75+ series) [facility] Start: 2052 RSV Immunization aged 60 or older (1 - 1-dose 60+ series) RSV Immunization aged 60 or older (1 - 1-dose 60+ series) [facility] Start: 2042 Zoster Vaccines (1 of 2) Zoster Vaccines (1 of 2) [facility] Start: 01-24-2031 DTaP/Tdap/Td vaccine (2 - Td or Tdap) DTaP/Tdap/Td vaccine (2 - Td or Tdap) [facility] Work Phone: Start: 01-24-2031 DTaP/Tdap/Td Vaccines (2 - Td or Tdap) DTaP/Tdap/Td Vaccines (2 - Td or Tdap) [facility] Start: 01-24-2031 Urine microalbumin profile [facility] Start: 02-23-2025 Influenza vaccination Influenza Vaccine (Season Ended) [facility] Start: 12-08-2024 End: 12-08-2024 Telemedicine consultation with patient 12/08/2024 8:00 AM EDT Telemedicine [facility] [address] [place] [address] James Zuniga MD [address] [place] [address] [facility] Start: 11-15-2024 End: 10-16-2025 MR Internal auditory canal WO and W contrast IV MR IAC w and wo IV contrast Imaging Routine Dizziness and giddiness Other headache syndrome Expected: 11/15/2024, Expires: 10/16/2025 [facility] Work Phone: Comment on above: Expected: 11/15/2024, Expires: Start: 10-16-2024 End: 10-16-2025 Cervical +Ocular VEMP Cervical +Ocular VEMP Audiology Routine Dizziness and giddiness Expected: 10/16/2024 (Approximate), Expires: 10/16/2025 [facility] Service Area Work Phone: Comment on above: Expected: 10/16/2024 (Approximate), Expi res: 10/16/2025 Start: 10-16-2024 End: 10-16-2025 Electronystagmography Electronystagmography Audiology Routine Dizziness and giddiness Expected: 10/16/2024 (Approximate), Expires: 10/16/2025 [facility] Work Phone: Comment on above: Expected: 10/16/2024 (Approximate), Expi res: 10/16/2025 Start: 10-16-2024 End: 10-16-2025 V-Hit V-Hit Audiology Routine Dizziness and giddiness Expected: 10/16/2024 (Approximate), Expires: 10/16/2025 [facility] Work Phone: Comment on above: Expected: 10/16/2024 (Approximate), Expi res: 10/16/2025 Start: 06-03-2024 End: 06-03-2024 Patient encounter procedure 06/03/2024 10:20 AM EST Office Visit Family Medicine [address] [address] Bobby Cabrales DO [address] [place] [address] / [place] [address] [facility] Comment on above: well adult Start: 02-24-2024 COVID-19 Vaccine ( season) COVID-19 Vaccine ( season) [facility] Start: 02-24-2024 Influenza vaccination Influenza Vaccine (#1) [facility] Start: 06-25-2023 Depression Assessment Depression Assessment [facility] Start: 02-23-2023 Covid-19 Vaccine ( season) Covid-19 Vaccine ( season) [facility] Start: 02-23-2023 COVID-19 Vaccine () COVID-19 Vaccine () [facility] Start: 02-23-2023 Influenza vaccination [facility] Start: 2022 Screening for malignant neoplasm of cervix [facility] Start: 06-25-2022 DEPRESSION ASSESSMENT DEPRESSION ASSESSMENT [facility] Start: 02-23-2022 Influenza vaccination INFLUENZA (#1) [facility] Start: 02-23-2021 Influenza vaccination Flu vaccine (#1) [facility] Work Phone: Start: 02-24-2020 Influenza vaccination Flu vaccine (#1) [facility] Work Phone: Start: 2013 PAP TESTING PAP TESTING [facility] Start: 2013 Screening for malignant neoplasm of cervix [facility] Start: 11-21-2011 DTaP/Tdap/Td vaccine (1 - Tdap) DTaP/Tdap/Td vaccine (1 - Tdap) [facility] Work Phone: Start: 11-21-2011 Hepatitis B Vaccine (1 of 3 - 19+ 3-dose series) Hepatitis B Vaccine (1 of 3 - 19+ 3-dose series) [facility] Start: 11-21-2011 Hepatitis B Vaccines (1 of 3 - 19+ 3-dose series) Hepatitis B Vaccines (1 of 3 - 19+ 3-dose series) [facility] Start: 11-21-2011 Pneumococcal Vaccine: Pediatrics (0 to 5 Years) and At-Risk Patients (6 to 49 Years) (1 of 2 - PCV) Pneumococcal Vaccine: Pediatrics (0 to 5 Years) and At-Risk Patients (6 to 49 Years) (1 of 2 - PCV) [facility] Start: 11-21-2011 Pneumococcal Vaccine: Pediatrics and At-Risk Adult Patients (1 of 2 - PCV) Pneumococcal Vaccine: Pediatrics and At-Risk Adult Patients (1 of 2 - PCV) [facility] Start: 2010 Anxiety Screening Anxiety Screening [facility] Start: 2010 Depression Screening Depression Screening [facility] Start: 2010 HEPATITIS C SCREENING HEPATITIS C SCREENING [facility] Start: 2010 Hepatitis C screening Hepatitis C Screening [facility] Start: 2010 HIV SCREENING HIV SCREENING [facility] Start: 2010 HIV screening HIV Screening [facility] Start: 2008 COVID-19 Vaccine (1) COVID-19 Vaccine (1) [facility] Work Phone: Start: 11-21-2007 HIV screening HIV screen [facility] Work Phone: Start: 2005 Varicella vaccination Varicella Vaccines (1 of 2 - 13+ 2-dose series) [facility] Start: 2004 COVID-19 Vaccine (1) COVID-19 Vaccine (1) [facility] Work Phone: Start: 2004 Depression Screening Depression Screening [facility] Start: 1998 Pneumococcal 0-64 years Vaccine (1 of 1 - PPSV23) Pneumococcal 0-64 years Vaccine (1 of 1 - PPSV23) [facility] Work Phone: Start: 1998 Pneumococcal 0-64 years Vaccine (1 of 2 - PPSV23) Pneumococcal 0-64 years Vaccine (1 of 2 - PPSV23) [facility] Work Phone: Start: 1998 Pneumococcal Vaccine: Pediatrics (0 to 5 Years) and At-Risk Patients (6 to 64 Years) (1 of 2 - PCV) Pneumococcal Vaccine: Pediatrics (0 to 5 Years) and At-Risk Patients (6 to 64 Years) (1 of 2 - PCV) [facility] Start: 1993 MMR Vaccines (1 of 1 - Standard series) MMR Vaccines (1 of 1 - Standard series) [facility] Start: 1993 Varicella vaccine (1 of 2 - 2-dose childhood series) Varicella vaccine (1 of 2 - 2-dose childhood series) [facility] Work Phone: Start: 05-23-1993 COVID-19 VACCINE (#1) COVID-19 VACCINE (#1) [facility] Start: 1992 HEPATITIS B (1 of 3 - 3-dose series) HEPATITIS B (1 of 3 - 3-dose series) [facility] Start: 1992 Hepatitis B Vaccine (1 of 3 - 3-dose series) Hepatitis B Vaccine (1 of 3 - 3-dose series) [facility] Start: 1992 Hepatitis C screening Hepatitis C screen [facility] [employer] Phone: Start: 1992 HIV screening HIV Screening [facility] Start: 1992 Lipid panel Lipid Panel [facility] Start: 1992 Yearly Adult Physical Yearly Adult Physical [facility] End: 10-03-2023 ECG COMPLETE ECG COMPLETE ECG Routine SOB (shortness of breath) 1 Occurrences starting 10/02/2022 until 10/03/2023 [facility] Work Phone: Comment on above: 1 Occurrences starting 10/02/2022 until 10/03/2023 OUTSIDE VENDOR CARDI AC OUTPATIENT EXTENDED RHYTHM RECORDING (WITHOUT TELEMETRY) OUTSIDE VENDOR CARDIAC OUTPATIENT EXTENDED RHYTHM RECORDING (WITHOUT TELEMETRY) Holter Routine Palpitations Ordered: 01/21/2024 [facility] Work Phone: Comment on above: Ordered: 01/21/2024 End: 09-24-2023 SPIROMETRY - BASELINE AND POST DILATOR SPIROMETRY - BASELINE AND POST DILATOR PFT Routine SOB (shortness of breath) 1 Occurrences starting 08/25/2022 until 09/24/2023 [facility] Work Phone: Comment on above: 1 Occurrences starting 08/25/2022 until 09/24/2023 SPIROMETRY - BASELIN E AND POST DILATOR SPIROMETRY - BASELINE AND POST DILATOR PFT Routine SOB (shortness of breath) 08/31/2022 8:04 AM EST [facility] Work Phone: End: 09-24-2023 SPIROMETRY WITH DILATOR IF OBSTRUCTED SPIROMETRY WITH DILATOR IF OBSTRUCTED PFT Routine SOB (shortness of breath) 1 Occurrences starting 08/25/2022 until 09/24/2023 [facility] Work Phone: Comment on above: 1 Occurrences starting 08/25/2022 until 09/24/2023 End: 09-16-2020 US BREAST LIMITED LEFT US BREAST LIMITED LEFT Imaging Routine Once for 1 Occurrences starting 09/16/2020 until 09/16/2020 [employer] Work Phone: Comment on above: Once for 1 Occurrences starting 09/17/19 until 09/16/2020 US BREAST LIMITED LEFT US BREAST LIMITED LEFT Imaging Routine 09/16/2020 10:20 AM EDT [employer] Work Phone: End: 01-19-2024 XR Cervical spine 4 or 5 Views [employer] Comment on above: Once for 1 Occurrences starting 01/19/20 until 01/19/2024 End: 12-13-2024 XR Lumbar spine Views W flexion and W extension [employer] Work Phone: Comment on above: Once for 1 Occurrences starting 12/14/19 until 12/13/2024 End: 01-19-2024 XR Shoulder - right 2 Views [employer] Work Phone: Comment on above: Once for 1 Occurrences starting 01/19/20 until 01/19/2024 [facility] Immunizations Immunization Date Immunization Notes Care Provider Ana [facility] 04-29-2022 influenza virus vaccine, unspecified formulation Bhargav Vang Work Phone: [employer] 01-24-2021 tetanus toxoid, redu shaniqua diphtheria toxoid, and acellular pertussis vaccine, adsorbed Walter Elizabeth MD Work Phone: [facility] Payers Date Payer Category Payer Self-pay 2024 Medicaid [facility]MO [facility] ODM [id number] 2023 Commercial Managed C are - HMO MMO [employer] [id number] 2023 Managed Care (Private) MEDICAL M IDUAL [employer] MED [id number] 2023 Unknown [id number] 2023 Unknown [id number] 2018 Medicaid [id number] 2018 Medicaid (Managed Care) [employer] [id number] 2018 Medicaid [id number] 1992 Unknown [id number] 1992 Unknown [id number] 1992 Unknown [id number] 1992 Unknown [id number] Unknown [id number] Unknown DONALD [id number] Unknown ALLYSSAE [id number] Social History Date Type Detail Facility Start: 08-26-2016 End: 01-18-2024 Tobacco smoking status [facility] Current every day smoker [employer] Work Phone: Start: 08-26-2016 End: 10-16-2024 Cigarettes smoked current (pack per day) - Reported [employer] Work Phone: Start: 08-26-2016 End: 01-24-2021 Alcohol intake Current non-drinker of alcohol (finding) [employer] Work Phone: Start: 1990 Sex Assigned At Not on file [facility] [employer] Work Phone: Start: 10-06-2024 End: 10-16-2024 Exposure to SARS-CoV-2 (event) Not sure [facility] Start: 08-25-2022 [facility] End: 06-25-2019 History of tobacco use Current smoker [facility] End: 06-25-2019 History of tobacco use Cigarette Smoker [facility] Start: 08-25-2022 Tobacco use and exposure Smokeless tobacco non-user [facility] Start: 10-02-2022 End: 10-16-2024 Tobacco use panel [facility] National Score (1-10 0), lower number is lower risk Not on file [facility] Start: 01-24-2022 End: 09-02-2024 Sex Female (finding) [facility] Start: 1990 Sex Assigned At Female [facility] Tobacco smoking stat [facility] Tobacco smoking consumption unknown [facility] Work Phone: Functional Status Date Assessment Result Facility 10-16-2024 Patient Health Quest ionnaire 2 item (PHQ-2) [Reported] [facility] Work Phone: Clinical Notes 08-25-2022 to 12-08-2024 James Zuniga MD - 12/08/2024 8:00 AM Olya Zuniga MD - 10/16/2024 8:15 AM EDT Note Date & Type Note Facility 12-08-2024 History of Present illness Narrative History of present illness: Randa Murguia is a 34 y.o. female presenting today for a virtual follow-up via the audio-visual platform. Her symptoms does not include autophony and pulsatile tinnitus or pressure/pain induced dizziness. She continues to have facial pain and neck pain which has been improved and less frequent. Her tinnitus is unchanged. RECALL 10/16/2024 Randa Murguia is a 33 y.o. female presenting today for E/M of tinnitus. She was referred to us by Dr Hanson. Patient reports constant grinding and ringing noise since June 04, 2024. She also reports nausea and slight dizziness that is short lived. She notes that her symptoms seem to cause neck pain as well. Changes in pressure seem to trigger tinnitus, like getting in the car or turning the heaters on. She denies autophony. However, can hear cracking in both ears and sometimes can hear her own heartbeat. Patient had a CT scan with Dr. Hanson and he thinks there might be some possibility of superior semicircular dehiscence. Patient is here for a second opinion. The patient's current medications, active allergies and list of medical problems were reviewed in the EHR and confirmed electronically there are as follows; Allergies: Allergies[1] Current list of medications: Current Medications[2] Problem list: Problem List[3] Physical Examination:This is a virtual visit. Diagnostic testing: VNG testing completed showed evidence to suggest possible bilateral vestibular hypofunction The total SPV was 12 degrees per second on the left and 10 on the right which may be indicative of mild bilateral vestibulopathy HIMP testing showed decreased gains bilaterally on most of the canal except anterior semicircular canals. cVemp response were present bilaterally with presence of decreased thresholds bilaterally with a larger amplitude on the right which is consistent with a third window. CT IAC reviewed showed possible right sided SCD and questionable on the left. Report of the MRI showed no focal lesions of the VII or VIII CN nerve complex I personally reviewed the available patient's external record and independently reviewed their audiometric testing [and] radiographic imaging through the appropriate viewing software as detailed in my note and agree with the detailed report. Impression: Headache Occipital pain Subjective Tinnitus facial pain Right superior semicircular canal dehiscence. Recommendation: I do not think she has SCDS based on her symptomatology. We reviewed her imaging which showed the radiographic dehiscence, which may be asymptomatic in her case. We will obtain a neurological evaluation to assess for a cervical issues. I do not believe that her vestibular hypofunction on VNG is clinically significant. She will follow up with Dr Baca and she will reach out to her PCP for suggestions for a neurologist. I discussed with the patient the complexity of my medical decision making including the treatment and testing rational, indications of their elective procedure and possible adverse effects and/or complications. Based on the provided documentation and my professional assessment of this patient's chronic conditions, the complexity of evaluation and treatment is moderate. This note was created using speech recognition windlasser software. Despite proofreading, several typographical errors might be present that might affect the meaning of the content. Please call with any questions. By signing my name below, Noelle Garretti Liatmannyjeni attest that this documentation has been prepared under the direction and in the presence of James Zuniga MD [1] No Known Allergies [2] Current Outpatient Medications Medication Sig Dispense Refill sertraline (Zoloft) 100 mg tablet Take 1 tablet (100 mg) by mouth once daily. No current facility-administered medications for this visit. [3] There is no problem list on file for this patient. documented in this encounter [facility] Work Phone: 10-16-2024 History of Present illness Narrative History of present illness: Randa Murguia is a 33 y.o. female presenting today for E/M of tinnitus. She was referred to us by Dr Hanson. Patient reports constant grinding and ringing noise since June 04, 2024. She also reports nausea and slight dizziness that is short lived. She notes that her symptoms seem to cause neck pain as well. Changes in pressure seem to trigger tinnitus, like getting in the car or turning the heaters on. She denies autophony. However, can hear cracking in both ears and sometimes can hear her own heartbeat. Patient had a CT scan with Dr. Hanson and he thinks there might be some possibility of superior semicircular dehiscence. Patient is here for a second opinion. The patient's current medications, active allergies and list of medical problems were reviewed in the EHR and confirmed electronically there are as follows; Allergies: Allergies[1] Problem list: Problem List[2] Current list of medications: Current Medications[3] Medical history: Medical History[4] Surgical history: Surgical History[5] Family history: Family History[6] Social history: Social History[7] Physical Examination: CONSTITUTIONAL: No acute distress VOICE: No hoarseness or other abnormality RESPIRATION: Breathing comfortably, no stridor CV: No clubbing/cyanosis/edema in hands EYES: EOM intact, sclera clear NEURO: Alert and oriented times 3, Cranial nerves II-XII grossly intact and symmetric bilaterally HEAD AND FACE: Symmetric facial features, no masses or lesions RIGHT EAR: Normal external ear and post auricular area, no visible lesions, external auditory canal patent, tympanic membrane intact, no retraction, no signs of mass, effusion, or infection within the middle ear. Fistula test negative. LEFT EAR: Normal external ear and post auricular area, no visible lesions, external auditory canal patent, tympanic membrane intact, no retraction, no signs of mass, effusion, or infection within the middle ear. Fistula test negative NOSE: Anterior rhinoscopy clear, no significant external deformity. ORAL CAVITY/OROPHARYNX/LIPS: normal lining, mobile tongue. PHARYNGEAL GRAF: Moist mucosal lining, good palatal elevation NECK/LYMPH: No LAD, no thyroid masses, trachea midline SKIN: Neck and facial skin is without scar or injury PSYCH: Alert and oriented with appropriate mood and affect Diagnostic testing: Audiometry: Audiometry testing reveals: Normal hearing sensitivity bilaterally CT report does not mention the canal dehiscence. However I do not have the actual images to review but per Dr Hanson, He is concerned that there may be a dehiscence on the right superior semicircular canal. I personally reviewed the available patient's external record and independently reviewed their audiometric testing [and] radiographic imaging through the appropriate viewing software as detailed in my note and agree with the detailed report. Impression: Headache Occipital pain Dizziness, cause undetermined Tinnitus Subjective facial pain Recommendation: At this point, her symptoms do not necessarily fit the superior canal dehiscence syndrome. I would like to review the actual CT scan to be able to determine the radiographic presence of this. However, I feel it is worthwhile obtaining balance testing and an MRI, given her neck pain and facial pain, and considering a neurology consultation for further evaluation. Will schedule a virtual visit to review all these tests in the near future. All questions were answered to her satisfaction. I discussed with the patient the complexity of my medical decision making including the treatment and testing rational, indications of their elective procedure and possible adverse effects and/or complications. Based on the provided documentation and my professional assessment of this patient's chronic condition with acute exacerbation, the complexity of evaluation and treatment is moderate. This note was created using speech recognition windlasser software. Despite proofreading, several typographical errors might be present that might affect the meaning of the content. Please call with any questions. By signing my name below, INoelle Scribe attest that this documentation has been prepared under the direction and in the presence of James Zuniga MD Scribe Attestation By signing my name below, Kathi Garrett , Scribe attest that this documentation has been prepared under the direction and in the presence of James Zuniga MD. [1] Not on File [2] There is no problem list on file for this patient. [3] No current outpatient medications on file. No current facility-administered medications for this visit. [4] No past medical history on file. [5] No past surgical history on file. [6] No family history on file. [7] documented in this encounter [facility] Work Phone: 08-19-2024 Radiology Diagnostic study note [facility] Imaging Services [address] [place] [address] Orb Sella Post Fossa Ear w/o MR#: [id number] Acct: [id number] Name: RANDA MURGUIA Rep #: [id number] : 1990 F 33 From: Yoel Potts MD PCP: JACK Mosqueda Status: REG CLI Study:Orb Sella Post Fossa Ear w/o Date of Ex am: 08/19/24 Exam# [id number] Ordering Dr: Marissa Baca MD PROCEDURE: CT scan of the temporal bones. TECHNIQUE: Multiple axial tomographic images were obtained without intravenous contrast administration. Coronal and sagittal reconstruction was obtained as well. COMPARISON: None. FINDINGS: The temporal bones are unremarkable. The middle ear cavity is unremarkable. The internal auditory canal is unremarkable. There is evidence of mucosal retention cyst or polyp at the base of the right maxillary sinus. The visualized portions of the orbits are unremarkable. CT/Orb Sella Post Fossa Ear w/o IMPRESSION: Unremarkable examination of the temporal bones. One or more dose reduction techniques were used (e.g., Automated exposure control, adjustment of the mA and/or kV according to patient size, use of iterative reconstruction technique). Reading Location: [facility] CC: JACK Vang; Dr. Marissa Baca MD ~ Bilingual Inside Sales Representative: Signed [facility] 06-10-2024 Evaluation note Diagnosis Onset Date Resolution Acute maxillary sinusitis acute June 10, 2 024 6:51pm Left acute otitis media acute June 10, 2 024 6:51pm [facility] Work Phone: 1(295) 241-904508-27-2024 Telephone encounter Note* Telephone Encounter - Frances Argueta RN - 02/19/2024 12:48 PM EDT Spoke with pt, reviewed below message. Verbalized understanding, no further questions. Pt reports palpitations have basically ceased Aware to contact office if symptoms return at any point No further questions at this time [facility]08-27-2024 Miscellaneous Notes* Telephone Encounter - Frances Argueta RN - 02/19/2024 12:48 PM EDT Spoke with pt, reviewed below message. Verbalized understanding, no further questions. Pt reports palpitations have basically ceased Aware to contact office if symptoms return at any point No further questions at this time * Telephone Encounter - Alena Sparks APRN.CNP - 02/19/2024 12:07 PM EDT Zio did not reveal any concerning rhythms, mostly sinus with one run of SVT and her triggered events correlated with sinus rhythm. How are palpitations? If still present/ bothersome we could try a low dose beta patti daily and see how they are. Would need to monitor BP/HR at home occasionally [facility] Telephone encounter Note * Telephone Encounter - Alena Sparks APRN.CNP - 02/19/2024 12:07 PM EDT Zio did not reveal any concerning rhythms, mostly sinus with one run of SVT and her triggered events correlated with sinus rhythm. How are palpitations? If still present/ bothersome we could try a low dose beta patti daily and see how they are. Would need to monitor BP/HR at home occasionally [facility]08-05-2024 Telephone encounter Note* Telephone Encounter - Margie Cook RN - 01/28/2024 3:00 PM EDT Notified patient. Patient verbalizes understanding and has no other questions or concerns at this time. Margie Cook RN [facility]08-05-2024 Miscellaneous Notes* Telephone Encounter - Margie Cook RN - 01/28/2024 3:00 PM EDT Notified patient. Patient verbalizes understanding and has no other questions or concerns at this time. Margie Cook RN * Telephone Encounter - Alena Sparks APRN.CNP - 01/28/2024 2:56 PM EDT I double checked my order and it was placed correctly for 7 days so should be able to send back now Alena Sparks APRN.INCIDENT COORDINATOR * Telephone Encounter - Cari Valadez - 01/28/2024 8:16 AM EDT Patient saw Alena Sparks last week. She said Alena told her to wear the Zio monitor for 7 days. When she received the monitor, the instructions say to wear it for 14 days. Wants clarification. Please call her at [phone]. [facility] Telephone encounter Note * Telephone Encounter - Alena Sparks APRN.JEANNINE - 01/28/2024 2:56 PM EDT I double checked my order and it was placed correctly for 7 days so should be able to send back now Alena Sparks APRN.INCIDENT COORDINATOR [facility] Telephone encounter Note* Telephone Encounter - Cari Valadez - 01/28/2024 8:16 AM EDT Patient saw Alena Sparks last week. She said Alena told her to wear the Zio monitor for 7 days. When she received the monitor, the instructions say to wear it for 14 days. Wants clarification. Please call her at [phone]. [facility] Telephone encounter Note* Telephone Encounter - Naomi Zapata, RN - 01/24/2024 3:51 PM EDT Call to patient, no answer. Detailed message left on . Delivery is typically 3-5 business days. Order was placed 1599. Number for Zio given if not received ([phone]) or can contact Zio at [employer]. [facility]08-01-2024 Miscellaneous Notes* Telephone Encounter - Naomi Zapata, RN - 01/24/2024 3:51 PM EDT Call to patient, no answer. Detailed message left on . Delivery is typically 3-5 business days. Order was placed 1599. Number for Zio given if not received ([phone]) or can contact Zio at [employer]. * Telephone Encounter - Cari Valadez - 01/24/2024 1:44 PM EDT Patient said she saw Alena Sparks on Sunday and a Zio monitor was ordered, but she still hasn't received it. Said she was told it would be sent out within 24 hours. Please callher at [phone] for clarification on when she should get it. [facility] Telephone encounter Note * Telephone Encounter - Cari Valadez - 01/24/2024 1:44 PM EDT Patient said she saw Alena Sparks on Sunday and a Zio monitor was ordered, but she still hasn't received it. Said she was told it would be sent out within 24 hours. Please callher at [phone] for clarification on when she should get it. [facility]24 NoteHNO ID: [id number] Author: ALENA SPARKS APRN.[employer] Service: ? Author Type: Nurse Practitioner Type: Progress Notes Filed: 01/21/2024 16:13 Note Text: ESTABLISHED PATIENT Randa Murguia is a 33 year old female presenting for Follow Up (Heart palpitations every all day long). HISTORY OF PRESENT ILLNESS Started with these episodes one week ago Feels like a skipped beat and then a heavier heart beat then it returns to normal Denies SOB, does have some chest pain but directly related to shoulder movement (getting treatment for injured R shoulder as well) These episodes happen all throughout the day, can happen both at rest and exertion No relation to eating Does not wake her at night Does not feel like anxiety No other illnesses or bowel issues Has cut out caffeine for a couple days (down to one coffee and one coke) and its not helping symptoms Stopped her allergy pill to see if helped but it did not help (cetirizine) 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 No past surgical history on file. Social History Tobacco Use Smoking status: Former Types: Cigarettes Quit date: 2019 Years since quittin.5 Smokeless tobacco: Never Allergies: ALLERGIES No Known Allergies Medications: ibuprofen (MOTRIN) 600 mg tablet Take 1 tablet by mouth every 8 hours as needed. calcium carbonate (TUMS ORAL) Take by mouth as needed. albuterol HFA (PROAIR HFA) 90 mcg/actuation inhaler Inhale 2 Puffs as instructed every 4 hours as needed for wheezing/shortness of breath. sertraline (ZOLOFT) 100 mg tablet Take 100 mg by mouth once daily. PULMICORT FLEXHALER 90 mcg/actuation aepb INHALE 2 PUFFS INSTRUCTED TWICE DAILY. (Patient not taking: Reported on 01/21/2024) hydrOXYzine HCl (ATARAX) 10 mg tablet TAKE 1 TABLET BY MOUTH THREE TO FOUR TIMES DAILY NEEDED FOR ANXIETY (Patient not taking: Reported on 01/21/2024) REVIEW OF SYSTEMS See HPI PHYSICAL EXAM BP 108/74 Pulse 70 Temp 36.6 ?C (97.9 ?F) (Temporal) Resp 16 Wt 67.8 kg (149 lb 7.6 oz) LMP 01/07/2024 (Approximate) SpO2 99% BMI 27.34 kg/m? General: Well developed, well nourished, in no acute distress. Head: Normocephalic, atraumatic. Neck: Supple. Eyes: Normal conjunctiva, no scleral icterus. Lungs: Clear to auscultation bilaterally, no rubs, no wheezing. Cardiac: Regular rate and rhythm. No murmurs, gallops, or rubs. Extremities: No edema. ASSESSMENT: (R00.2) Palpitations (primary encounter diagnosis) PLAN: - EKG nsr, check labs - zio - continue cutting caffeine - to let us know if anything worsens or changes in the mean time [facility] Spar[facility] History of Present illness Narrative* Alena Sparks APRN.INCIDENT COORDINATOR - 01/21/2024 3:35 PM EDT ESTABLISHED PATIENT Randa Murguia is a 33 year old female presenting for Follow Up (Heart palpitations every all day long). HISTORY OF PRESENT ILLNESS Started with these episodes one week ago Feels like a skipped beat and then a heavier heart beat then it returns to normal Denies SOB, does have some chest pain but directly related to shoulder movement (getting treatment for injured R shoulder as well) These episodes happen all throughout the day, can happen both at rest and exertion No relation to eating Does not wake her at night Does not feel like anxiety No other illnesses or bowel issues Has cut out caffeine for a couple days (down to one coffee and one coke) and its not helping symptoms Stopped her allergy pill to see if helped but it did not help (cetirizine) 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 No past surgical history on file. Social History Tobacco Use Smoking status: Former Types: Cigarettes Quit date: 2019 Years since quittin.5 Smokeless tobacco: Never Allergies: ALLERGIES No Known Allergies Medications: ibuprofen (MOTRIN) 600 mg tablet Take 1 tablet by mouth every 8 hours as needed. calcium carbonate (TUMS ORAL) Take by mouth as needed. albuterol HFA (PROAIR HFA) 90 mcg/actuation inhaler Inhale 2 Puffs as instructed every 4 hours as needed for wheezing/shortness of breath. sertraline (ZOLOFT) 100 mg tablet Take 100 mg by mouth once daily. PULMICORT FLEXHALER 90 mcg/actuation aepb INHALE 2 PUFFS INSTRUCTED TWICE DAILY. (Patient not taking: Reported on 01/21/2024) hydrOXYzine HCl (ATARAX) 10 mg tablet TAKE 1 TABLET BY MOUTH THREE TO FOUR TIMES DAILY NEEDED FOR ANXIETY (Patient not taking: Reported on 01/21/2024) REVIEW OF SYSTEMS See HPI PHYSICAL EXAM BP 108/74 Pulse 70 Temp 36.6 C (97.9 F) (Temporal) Resp 16 Wt 67.8 kg (149 lb 7.6 oz) LMP01/07/2024 (Approximate) SpO2 99% BMI 27.34 kg/m General: Well developed, well nourished, in no acute distress. Head: Normocephalic, atraumatic. Neck: Supple. Eyes: Normal conjunctiva, no scleral icterus. Lungs: Clear to auscultation bilaterally, no rubs, no wheezing. Cardiac: Regular rate and rhythm. No murmurs, gallops, or rubs. Extremities: No edema. ASSESSMENT: (R00.2) Palpitations (primary encounter diagnosis) PLAN: - EKG nsr, check labs - zio - continue cutting caffeine - to let us know if anything worsens or changes in the mean time Alena Sparks APRN.INCIDENT COORDINATOR * Linda De La Cruz MA - 01/21/2024 3:30 PM EDT Depression Screening Never done Anxiety Screening Never done HIV Screening Never done Hepatitis B Vaccine(1 of 3 - 19+ 3-dose series) Never done Cervical Cancer Screening Never done Covid-19 Vaccine() Never done [facility]-2024 NoteHNO ID: [id number] Author: LINDA DE LA CRUZ MA Service: ? Author Type: Gps Field Data Collector Type: Progress Notes Filed: 01/21/2024 16:13 Note Text: Depression Screening Never done Anxiety Screening Never done HIV Screening Never done Hepatitis B Vaccine(1 of 3 - 19+ 3-dose series) Never done Cervical Cancer Screening Never done Covid-19 Vaccine() [facility]2024 NoteHNO ID: [id number] Author: NATHAN MEZA DO Service: ? Author Type: Physician Type: Procedures Filed: 03/06/2024 16:29 Note Text: Patient Name: Randa Murguia : 1990 Ordering Provider: ALENA SPARKS Indication: R00.2 Palpitations Type of Monitor: Extended Monitoring-Zio Patch Enrollment Dates: 01/25/2024-02/01/2024 IRHYTHM FINDINGS: Patient had a min HR of 48 bpm, max HR of 134 bpm, and avg HR of 70 bpm. Predominant underlying rhythm was Sinus Rhythm. 1 run of Supraventricular Tachycardia occurred lasting 5 beats with a max rate of 121 bpm (avg 116 bpm). Isolated SVEs were rare (<1.0%), and no SVE Couplets or SVE Triplets were present. Isolated VEs were rare (<1.0%), and no VE Couplets or VE Triplets were present. Ventricular Bigeminy and Trigeminy were present. Conclusion: 1. Average heart rate of 70 bpm with a minimum of 40 bpm, predominant sinus rhythm. 2. 1 run of SVT of 5 beats at 121 bpm. 3. There were rare PACs and rare PVCs 4. Symptoms consistent with normal sinus rhythm.[facility] 07-15-2023 NoteHNO ID: [id number] Author: RITA BLANCO APRN.INCIDENT COORDINATOR Service: ? Author Type: Nurse Practitioner Type: Progress Notes Filed: 07/15/2023 09:18 Note Text: This note was created using [employer]. Subjective Randa Murguia is a 32 year old female. HPI by patient: Randa is a 32 year old presenting to the office with the complaint of URI Started approximately 2 weeks ago Associated symptoms include ear pain, congestion, PND, cough, states she's having body aches for 2 weeks ago Denies any other concerns Covid Immunization Dates Overdue - Covid-19 Vaccine (1) Never done No completion, postpone, frequency change, or communication history exists for this topic. Sick contacts: yes, whole family has been sick Smoking history/second hand smoke: no OTC tylenol cold and sinus No antibiotic use in the last 60 days. ALLERGIES No Known Allergies Family History Reviewed Including Cardiac Diseases, Psychiatric Diseases, AND Substance Abuse Problem: Colon Cancer Relation: Maternal Grandmother Age of Onset: (Not Specified) Problem: Breast Cancer Relation: Other Age of Onset: (Not Specified) Problem: Lung Cancer Relation: Other Age of Onset: (Not Specified) Problem: other (bladder cancer) Relation: Other Age of Onset: (Not Specified) Problem: Skin Cancer Relation: Other Age of Onset: (Not Specified) Problem: Colon Cancer Relation: Other Age of Onset: (Not Specified) Social History Tobacco Use Smoking status: Former Types: Cigarettes Quit date: 2019 Years since quittin.0 Smokeless tobacco: Never Review of Systems Constitutional: Negative for chills and fever. HENT: Positive for congestion, ear pain, postnasal drip, sinus pain and sore throat. Negative for rhinorrhea. Respiratory: Positive for cough. Cardiovascular: Negative for chest pain. Allergic/Immunologic: Negative for immunocompromised state. Hematological: Negative for adenopathy. Objective LMP 09/19/2022 (Approximate) Physical Exam Vitals and nursing note reviewed. HENT: Right Ear: Tympanic membrane and ear canal normal. Left Ear: Ear canal normal. Tympanic membrane is injected and erythematous. Tympanic membrane is not bulging. Nose: Congestion and rhinorrhea present. Mouth/Throat: Pharynx: Uvula midline. Posterior oropharyngeal erythema present. No oropharyngeal exudate. Cardiovascular: Rate and Rhythm: Normal rate and regular rhythm. Heart sounds: Normal heart sounds. Pulmonary: Effort: Pulmonary effort is normal. No respiratory distress. Breath sounds: Normal breath sounds. No stridor. No wheezing, rhonchi or rales. Chest: Chest wall: No tenderness. Lymphadenopathy: Cervical: No cervical adenopathy. Skin: General: Skin is warm and dry. Neurological: Mental Status: She is alert and oriented to person, place, and time. Assessment and Plan ASSESSMENT/PLAN: 1. Acute otitis media, left - ICD9: 382.9, ICD10: H66.92 (primary diagnosis) - Will begin treatment with as per antibiotic as written, see orders - Supportive care with plenty of fluids, rest, and analgesia prn. - AMOXICILLIN 875 MG-POTASSIUM CLAVULANATE 125 MG TABLET 2. Viral URI with cough - ICD9: 465.9, ICD10: J06.9 - Discussed viral etiology and rationale for treatment. - Symptomatic treatment with prn analgesia - Supportive care with fluids and rest Rita Blanco APRN.INCIDENT COORDINATOR Medical Decision Making: Problems: Moderate: New problem with uncertain prognosis Data: Unique source(s) for external note(s) reviewed: 1 Risk: Moderate: Drug management Medical Decision Making Level: [facility] History of Present illness Narrative* Rita Blanco APRN.[employer] - 07/15/2023 8:46 AM EST This note was created using [employer] (Member[employer])riter. Subjective Randa Murguia is a 32 year old female. HPI by patient: Randa is a 32 year old presenting to the office with the complaint of URI Started approximately 2 weeks ago Associated symptoms include ear pain, congestion, PND, cough, states she's having body aches for 2 weeks ago Denies any other concerns Covid Immunization Dates Overdue - Covid-19 Vaccine (1) Never done No completion, postpone, frequency change, or communication history exists for this topic. Sick contacts: yes, whole family has been sick Smoking history/second hand smoke: no OTC tylenol cold and sinus No antibiotic use in the last 60 days. ALLERGIES No Known Allergies Family History Reviewed Including Cardiac Diseases, Psychiatric Diseases, & Substance Abuse Problem: Colon Cancer Relation: Maternal Grandmother Age of Onset: (Not Specified) Problem: Breast Cancer Relation: Other Age of Onset: (Not Specified) Problem: Lung Cancer Relation: Other Age of Onset: (Not Specified) Problem: other (bladder cancer) Relation: Other Age of Onset: (Not Specified) Problem: Skin Cancer Relation: Other Age of Onset: (Not Specified) Problem: Colon Cancer Relation: Other Age of Onset: (Not Specified) Social History Tobacco Use Smoking status: Former Types: Cigarettes Quit date: 2019 Years since quittin.0 Smokeless tobacco: Never Review of Systems Constitutional: Negative for chills and fever. HENT: Positive for congestion, ear pain, postnasal drip, sinus pain and sore throat. Negative for rhinorrhea. Respiratory: Positive for cough. Cardiovascular: Negative for chest pain. Allergic/Immunologic: Negative for immunocompromised state. Hematological: Negative for adenopathy. Objective LMP 09/19/2022 (Approximate) Physical Exam Vitals and nursing note reviewed. HENT: Right Ear: Tympanic membrane and ear canal normal. Left Ear: Ear canal normal. Tympanic membrane is injected and erythematous. Tympanic membrane is not bulging. Nose: Congestion and rhinorrhea present. Mouth/Throat: Pharynx: Uvula midline. Posterior oropharyngeal erythema present. No oropharyngeal exudate. Cardiovascular: Rate and Rhythm: Normal rate and regular rhythm. Heart sounds: Normal heart sounds. Pulmonary: Effort: Pulmonary effort is normal. No respiratory distress. Breath sounds: Normal breath sounds. No stridor. No wheezing, rhonchi or rales. Chest: Chest wall: No tenderness. Lymphadenopathy: Cervical: No cervical adenopathy. Skin: General: Skin is warm and dry. Neurological: Mental Status: She is alert and oriented to person, place, and time. Assessment and Plan ASSESSMENT/PLAN: 1. Acute otitis media, left - ICD9: 382.9, ICD10: H66.92 (primary diagnosis) - Will begin treatment with as per antibiotic as written, see orders - Supportive care with plenty of fluids, rest, and analgesia prn. - AMOXICILLIN 875 MG-POTASSIUM CLAVULANATE 125 MG TABLET 2. Viral URI with cough - ICD9: 465.9, ICD10: J06.9 - Discussed viral etiology and rationale for treatment. - Symptomatic treatment with prn analgesia - Supportive care with fluids and rest Rita Blanco APRN.CNP Medical Decision Making: Problems: Moderate: New problem with uncertain prognosis Data: Unique source(s) for external note(s) reviewed: 1 Risk: Moderate: Drug management Medical Decision Making Level: 4 - Moderate documented in this encounterMem[facility]01-21-[facility]24 Instructions* Patient Instructions* Rita Blanco APRN.CNP - 07/15/2023 8:46 AM EST UPPER RESPIRATORY INFECTIONS Most cases are caused by viruses and most cases are mild, temporary, and harmless. Symptoms can last 2 to 3 weeks and can include: nasal congestion, sore throat, coughing, muscles aches, headaches, nausea, diarrhea, fatigue and fever. 1. Drink plenty of fluids. 2. Get lots of rest. 3. Avoid dehydrants such as caffeine and alcohol. 4. Nasal saline is an effective decongestant and be used frequently throughout the day. 5. To loosen phlegm and help coughing, drink plenty of fluids and using a humidifier. 6. For sore throats, it is ok to use cough drops, throat sprays, or gargling warm salt water. 7. Always cover your mouth when you cough or sneeze, and wash your hands frequently. Avoid crowded areas like shopping centers, movies while you are sick so you don't picker operator a different virus, or infect others. 8. Avoid exposure to cigarettes or fumes. 9. Avoid irritants such as potpourri, dust, perfumes, scented candles and scented sprays 10. Air conditioning is an effective allergen and irritant avoidance strategy in the spring, summerand fall. 11. Honey is an effective cough suppressant. Try one tsp two to three times per day. 12. Mucinex every 12 hours with a full 10-12 ounces of water The below information is from [employer]letter[employer]: Antibiotics Will rarely help an upper respiratory infections. Antibiotics lead to more resistant infections that are harder to treat. There is little to no benefit to taking antibiotics for most acute upper respiratory tract infections. documented in this encounterMemorial Hospital04-10-2023 History of Present illness Narrative* Bobby Cabrales, - 10/02/2022 9:13 AM EDT 31 year old female presenting for I have fully reviewed the past medical, surgical, social and family history and updated the Histories section of [facility]. Patient continuing to complain of 1 year of constant shortness of breath and chest pain. Chest x-ray, PFTs were unremarkable. Patient does report that steroid inhalers have helped her. Reports that when she traveled away from her residence in [place] she did have improvement in symptoms. As well reports some improvement with antihistamines, concern for allergies is seeing extrusion bender soon here Current Outpatient Medications on File Prior to Visit: Current Outpatient Medications Medication Sig Dispense Refill hydrOXYzine HCl (ATARAX) 10 mg tablet TAKE 1 TABLET BY MOUTH THREE TO FOUR TIMES DAILY NEEDED FOR ANXIETY ibuprofen (MOTRIN) 600 mg tablet Take 1 tablet by mouth every 8 hours as needed. calcium carbonate (TUMS ORAL) Take by mouth as needed. albuterol HFA (PROAIR HFA) 90 mcg/actuation inhaler Inhale 2 Puffs as instructed every 4 hours as needed for wheezing/shortness of breath. 2 Each 1 budesonide (PULMICORT FLEXHALER) 90 mcg/actuation aepb Inhale 2 Puffs as instructed twice daily. 6 Each 0 sertraline (ZOLOFT) 100 mg tablet Take 100 mg by mouth once daily. No current facility-administered medications for this visit. ALLERGIES No Known Allergies No past surgical history on file. Social history reviewed in [employer]. REVIEW OF SYSTEMS: Constitutional: Denies fever, denies chills, denies fatigue Head: Denies headache Eyes: Denies changes in vision or blurry vision Ears/Nose/Throat: Denies sore throat, denies rhinorrhea Musculoskeletal: Denies joint pain, denies myalgias Abd: No abd pain, no vomiting, no diarrhea, no nausea Skin/Breast: Denies rash or lesions Cardiovascular: Denies chest pain, denies palpitations, denies LE edema Respiratory: Denies cough, denies SOB, denies wheezing Neurological: Denies numbness, denies tingling, denies weakness PHYSICAL EXAMINATION: General appearance: Well appearing, alert, in no acute distress, well-hydrated, well nourished. Skin: no suspicious rashes or lesions Head: Normocephalic, atraumatic Eyes: Anicteric sclera Nose/Sinuses: Nares normal Oropharynx: Mucosa moist Neck: Supple Lungs: Lungs clear to auscultation. No wheezing, rhonchi, rales. Heart: RRR without murmur, gallop, or rubs. Abdomen: Normal abdominal exam, Abdomen soft, non-tender. No masses Extremities: No deformities, no edema, no cyanosis. Musculoskeletal: No joint swelling, no deformity Neuro: Speech intact ASSESSMENT/PLAN: 1. SOB (shortness of breath) - ICD9: 786.05, ICD10: R06.02 (primary diagnosis) - ECG COMPLETE - LIPID PANEL BASIC - HGB A1C - CBC + DIFF - COMP METABOLIC PANEL - TSH BLD - CETIRIZINE 10 MG TABLET 2. Special screening examination for viral disease - ICD9: V73.99, ICD10: Z11.59 - HEP C AB IA W/CONF SCRN EKG NSR Follow up with extrusion bender Follow up prn, pay see pulm if persists Trial of daily antihistamine do not take with hydroxyzine Atypical diffuse chest pain no exertional component present constantly for one year along with shortness of breath Bobby Cabrales DO Discussed with patient red flag symptoms. Discussed risks and benefits of treatment plan. Pt understands to seek appropriate evaluation for new or worsening symptoms. Patient understands and agrees with plan, all concerns and questions addressed. documented in this encounterMemorial Hospital03-09-2023 History of Present illness Narrative* Raheem Carrero RRT - 08/31/2022 8:30 AM EST PULM FUNCTION SMARTBLOCK: Provider: Bobby Cabrales DO Assisting Tech: Raheem Carrero RRT Spirometry w/BD: 1 documented in this encounterMemorial Hospital03-03-2023 History of Present illness Narrative* MURIEL Mahan) - 08/25/2022 1:00 PM EST Radiology Service Progress Note PATIENT NAME: Randa Murguia DATE OF SERVICE: August 25, 2022 TIME: 12:26 PM PATIENT IDENTITY VERIFICATION COMPLETED USING TWO (2) IDENTIFIERS: Name and Date of confirmedby patient verbally. FALL SCREENING: Has the patient had 2 falls in the last year or 1 fall with injury or currently using an Ambulatory Assistive Device (Walker, Cane, Wheelchair, Crutches, etc.)? No PATIENT GENDER DATA: Female. status: : No status: NO. PATIENT RELEVANT IMPLANT DATA REVIEWED: Not Applicable RADIOLOGY DEPARTMENT: General X-ray: Exam(s) Completed: Chest X-Ray PERIPHERAL IV DATA: Not applicable SIGNED BY: RT Kalli(Kayli) August 25, 2022 12:26 PM documented in this encounterMemorial Hospital03-03-2023 History of Present illness Narrative* Bobby Cabrales, DO - 08/25/2022 11:29 AM EST 31 year old female presenting for shortness of breath. I have fully reviewed the past medical, surgical, social and family history and updated the Histories section of [facility]. Patient reports constant shortness of breath for 1 year, otherwise normal state of health 1 year ago, has been using albuterol sporadically, does not help, minimal wheezing, no previous history of asthma has never had imaging never had PFTs. Reports she has unremitting chest pain constantly for oneyear. Mild intermittent cough nonproductive. No frequent palpitations, no le edema Anxiety On hydroxyzine Zoloft, stable at this time. Current Outpatient Medications on File Prior to Visit: Current Outpatient Medications Medication Sig Dispense Refill hydrOXYzine HCl (ATARAX) 10 mg tablet TAKE 1 TABLET BY MOUTH THREE TO FOUR TIMES DAILY NEEDED FOR ANXIETY ibuprofen (MOTRIN) 600 mg tablet Take 1 tablet by mouth every 8 hours as needed. calcium carbonate (TUMS ORAL) Take by mouth as needed. sertraline (ZOLOFT) 100 mg tablet Take 100 mg by mouth once daily. No current facility-administered medications for this visit. ALLERGIES No Known Allergies No past surgical history on file. Social history reviewed in [facility]. REVIEW OF SYSTEMS: Constitutional: Denies fever, denies chills, denies fatigue Head: Denies headache Eyes: Denies changes in vision or blurry vision Ears/Nose/Throat: Denies sore throat, denies rhinorrhea Musculoskeletal: Denies joint pain, denies myalgias Abd: No abd pain, no vomiting, no diarrhea, no nausea Skin/Breast: Denies rash or lesions Cardiovascular: chest pain, denies palpitations, denies LE edema Respiratory: cough, SOB, denies wheezing Neurological: Denies numbness, denies tingling, denies weakness PHYSICAL EXAMINATION: General appearance: Well appearing, alert, in no acute distress, well-hydrated, well nourished. Skin: no suspicious rashes or lesions Head: Normocephalic, atraumatic Eyes: Anicteric sclera. Pupils are equally round and reactive to light. Extraocular movements are intact. Ears: External ears normal, canals clear Nose/Sinuses: Nares normal, septum midline, mucosa normal, Oropharynx: Lips, mucosa, and tongue normal, good dentition, no pharyngeal erythema or exudates Neck: Supple, no adenopathy Lungs: Minimal wheezing bilaterally. Heart: RRR without murmur, gallop, or rubs. Abdomen: Normal abdominal exam, Abdomen soft, non-tender. No masses Extremities: No deformities, no edema, no cyanosis. Musculoskeletal: No joint swelling, no deformity Neuro: Gait normal. Speech intact ASSESSMENT/PLAN: 1. SOB (shortness of breath) - ICD9: 786.05, ICD10: R06.02 - SPIROMETRY - BASELINE AND POST DILATOR - SPIROMETRY WITH DILATOR IF OBSTRUCTED - XR CHEST 2V FRONTAL/LAT - HCG QUAL UR B/O - ALBUTEROL SULFATE HFA 90 MCG/ACTUATION AEROSOL INHALER - BUDESONIDE 90 MCG/ACTUATION BREATH ACTIVATED POWDER INHALER Trial of low-dose ICS, patient had minimal wheezes on exam bilaterally. hCG negative. Bobby Cabrales DO Discussed with patient red flag symptoms. Discussed risks and benefits of treatment plan. Pt understands to seek appropriate evaluation for new or worsening symptoms. Patient understands and agrees with plan, all concerns and questions addressed. [facility] in [facility]* Diagnosis Closed fracture of nasal bone, initial encounter- Primary Abrasion of nose, initial encounter documented in this encounter [facility] Work Phone: Evaluation note* Diagnosis SOB (shortness of breath)- Primary Shortness of breath LIZZIE (generalized anxiety disorder) Generalized anxiety disorder Chronic cough Cough documented in this encounter [facility]* Diagnosis SOB (shortness of breath) Shortness of breath documented in this encounter [facility]* Diagnosis SOB (shortness of breath) Shortness of breath documented in this encounter [facility]* Diagnosis SOB (shortness of breath)- Primary Shortness of breath Special screening examination for viral disease Special screening examination for unspecified viral disease documented in this encounter [facility]* Diagnosis Acute otitis media, left- Primary Unspecified otitis media Viral URI with cough Acute upper respiratory infections of unspecified site documented [facility]* Diagnosis Neuralgia and neuritis, unspecified documented in this encounter [facility] note* Diagnosis Palpitations- Primary documented in this encounter [facility] note* Diagnosis Neuralgia and neuritis, unspecified- Primary Neuralgia and neuritis, unspecified documented in this encounter [facility] note* Diagnosis Dizziness and giddiness Other headache syndrome documented in this encounter [facility] Work Phone: Evaluation note* Diagnosis Other headache syndrome- Primary Subjective tinnitus of both ears 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 Ice over nose * Attachments The following attachments cannot be sent through Care Everywhere. * Abrasions (Czech) [facility] Work Phone: Reason for referral (narrative)* Outpatient Procedure (Routine) - Authorized Specialty Diagnoses / Procedures Referred By Leticia oakes Referred To Contact [facility] Diagnoses SOB (shortness of breath) Procedures SPIROMETRY WITH DILATOR IF OBSTRUCTED BRNCDILAT RSPSE SPMTRY PRE&POST-BRNCDILAT ADMN Bobby Cabrales DO [address] [facility] / [place] [address] Respiratory [place] [address] [place] [id number] Referral ID Status Reason Start Date Expiration Date Visits Requested Visits Authorized [id number] Authorized Auto-Generat ed Referral 08/25/2022 09/24/2023 1 1 * Outpatient Procedure (Routine) - Authorized Specialty Diagnoses / Procedures Referred By Leticia aokes Referred To [facility] Diagnoses SOB (shortness of breath) Procedures SPIROMETRY - BASELINE AND POST DILATOR BRNCDILAT RSPSE SPMTRY PRE&POST-BRNCDILAT ADMN Bobby Cabrales DO [address] [facility] / [place] [address] [facility] [place] [address] [place] [id number] Referral ID Status Reason Start Date Expiration Date Visits Requested Visits Authorized [id number] Authorized Auto-Generat ed Referral 08/25/2022 09/24/2023 1 1 [facility] for referral (narrative)* Outpatient Procedure (Routine) - Closed Specialty Diagnoses / Procedures Referred By Leticia t Referred To Contact [facility] Diagnoses SOB (shortness of breath) Procedures ECG COMPLETE ECG ROUTINE ECG W/LEAST 12 LDS W/I&R [facility]WE[facility] [address] [facility] / [place] [address] Heart And Vascular [place] [address] [place] [id number] Referral ID Status Reason Start Date Expiration Date V isits Requested Visits Authorized [id number] Closed Auto-Generate d Referral 10/02/2022 10/02/2023 1 1 [facility] for referral (narrative)No reason for referral information availableWElyria Memorial Hospital Work Phone: Summary Purpose Family History No Family History Records Found Relationship Condition Age at Onset Recorded Date/T jogn mother Asthma Unknown grandmother Malignant neoplasm of breast Unknown Malignant neoplasm Unknown Diabetes mellitus Unknown grandfather Malignant neoplasm Unknown Advance Directives No Advanced Directives Records FoundNo Advanced Directives Records FoundNo Advanced Directives Records FoundNo Advanced Directives Records FoundNo Advanced Directives Records FoundNo Advanced Directives Records FoundNo Advanced Directives Records FoundNo Advanced Directives Records Found Chief Complaint and Reason for Visit Chief Complaint Admit Date Ear complaints June 10, 2024 6:51pm Tinnitus, right ear August 19, 2024 7:49am Reason for Visit Admit Date Acute maxillary sinusitis June 10, 2024 6:51pm Left acute otitis media June 10 6:51pm Additional Source Comments INFORMATION SOURCE (unrecogn ized section and content) DATE CREATED AUTHOR 09/22/2020 [facility] DATE CREATED AUTHOR AUTHOR'S ORGANIZ ATION 02/23/2021 [facility] DATE CREATED AUTHOR AUTHOR'S ORGANIZ ATION 01/23/2024 [facility] DATE CREATED AUTHOR AUTHOR'S ORGANIZ ATION 03/09/2024 [facility] DATE CREATED AUTHOR AUTHOR'S ORGANIZ ATION 09/05/2024 [facility] DATE CREATED AUTHOR AUTHOR'S ORGANIZ ATION 11/24/2024 [facility] DATE CREATED AUTHOR AUTHOR'S ORGANIZ ATION 12/09/2024 [facility] DATE CREATED AUTHOR AUTHOR'S ORGANIZ ATION 12/18/2024 [facility] Reason for Visit (unrecogniz ed section and content) Reason Comments Facial Pain Facial Swelling Reason Comments Shortness of Breath Feels like she is br eathing through a straw. And left lung hears a squeaking sound and feels it. Cough. Symptoms for 1 year. Establish Care Reason Comments Spirometry Specialty Diagnoses / Procedures Referred By Contching t Referred To Contact [facility] Diagnoses SOB (shortness of breath) Procedures SPIROMETRY - BASELINE AND POST DILATOR BRNCDILAT RSPSE SPMTRY PRE&POST-BRNCDILAT Bobby Jurado DO [address] [place] [address] Res[facility] [place] [address] [place] [id number] Referral ID Status Reason Start Date Expiration Date V isits Requested Visits Authorized [id number] Closed Auto-Generate d Referral 08/25/2022 09/24/2023 1 1 Reason Comments Follow Up Follow up on SOB and muscle pain right side of chest and under left shoulder. Syncope, passed out and fell X1 episode Reason Comments Viral Syndrome A lot of pressure in ear, has a lot of drainage. Body aches has been going on for 2 weeks Reason Comments Follow Up Heart palpitations e very all day long Reason Comments Still hasn't rec'd Zio monitor Reason Comments Question: how long to wear Zio monitor Reason Comments Results Reason Comments Follow-up Scheduled Active and Recently Administ ered Medications (unrecognized section and content) Medication Order 01/22/2021 01/23/2021 01/24/2021 acetaminophen (TYLENOL) tablet 650 mg (COMPLETED) 650 mg, Oral, ONCE, On 01/24/21 at 1049, For 1 dose, Maximum dose of acetaminophen is 4000 mg from all sources in 24 hours. 1058 (Given - Provid er: Shayy Garcia RN) Source Comments (unrecognize d section and content) In the event this informatio n is protected by the Federal Confidentiality of Alcohol and Drug Abuse Patient Records regulations: The Federal rules restrict any use of the information to criminally investigate or prosecute any alcohol or drug abuse patient.Memorial HospitalIn the event this information is protected by the Federal Confidentiality of Alcohol and Drug Abuse Patient Records regulations: The Federal rules restrict any use of the information to criminally investigate or prosecute any alcohol or drug abuse patient.Memorial HospitalIn the event this information is protected by the Federal Confidentiality of Alcohol and Drug Abuse Patient Records regulations: The Federal rules restrict any use of the information to criminally investigate or prosecute any alcohol or drug abuse patient.Mem[facility] HospitalIn the event this information is protected by the Federal Confidentiality of Alcohol and Drug Abuse Patient Records regulations: The Federal rules restrict any use of the information to criminally investigate or prosecute any alcohol or drug abuse patient.Mem[facility] HospitalIn the event this information is protected by the Federal Confidentiality of Alcohol and Drug Abuse Patient Records regulations: The Federal rules restrict any use of the information to criminally investigate or prosecute any alcohol or drug abuse patient.Mem[facility] HospitalIn the event this information is protected by the Federal Confidentiality of Alcohol and Drug Abuse Patient Records regulations: The Federal rules restrict any use of the information to criminally investigate or prosecute any alcohol or drug abuse patient.Mem[facility] HospitalIn the event this information is protected by the Federal Confidentiality of Alcohol and Drug Abuse Patient Records regulations: The Federal rules restrict any use of the information to criminally investigate or prosecute any alcohol or drug abuse patient.Mem[facility] HospitalIn the event this information is protected by the Federal Confidentiality of Alcohol and Drug Abuse Patient Records regulations: The Federal rules restrict any use of the information to criminally investigate or prosecute any alcohol or drug abuse patient.Memorial HospitalIn the event this information is protected by the Federal Confidentiality of Alcohol and Drug Abuse Patient Records regulations: The Federal rules restrict any use of the information to criminally investigate or prosecute any alcohol or drug abuse patient.[facility] Care Teams (unrecognized sec tion and content) [place] Reporter Relationship Specialty Start Date End Date Bobby Cabrales, DO [address] [facility] [place] [address] PCP - General Family Medicine 08/25/22 [employer] Reporter Relationship Specialty Start Date End Date Bobby Cabrales, DO [address] [facility] [place] [address] PCP - General Family Medicine 08/25/22 [employer] Reporter Relationship Specialty Start Date End Date Bobby Cabrales, DO [address] [facility] [place] [address] PCP - General Family Medicine 08/25/22 [employer] Reporter Relationship Specialty Start Date End Date Bobby Cabrales DO [address] [facility] / [facility] [place] [address] PCP - General Family Medicine 08/25/22 [employer] Reporter Relationship Specialty Start Date End Date Bobby Cabrales DO [address] [facility] / [place] [place] [address] PCP - General Family Medicine 08/25/22 [employer] Reporter Relationship Specialty Start Date End Date Vang, Bhargav [address] [place] [address] PCP - General 08/26/16 [employer] Reporter Relationship Specialty Start Date End Date Bobby Cabrales DO [address] [facility] / [place] [address] PCP - General Family Medicine 08/25/22 [employer] Reporter Relationship Specialty Start Date End Date Bobby Cabrales DO [address] [facility] / [place] [place] [address] PCP - General Family Medicine 08/25/22 [employer] Reporter Relationship Specialty Start Date End Date Bhargav Vang [address] [place] [address] PCP - General 08/26/16 Team Status: Active Member Role Status Dates Bhargav Vang [employer], [employer] Primary Care Provider Active Team Status: Inactive Member Role Status Dates Bhargav Vang [employer], [employer] Attending Provider Active Start: June 10, 2024 End: June 10, 2024 Team Status: Inactive Member Role Status Dates Dr. Marissa Baca MD Attending Provider Activ e Start: August 19, 2024 End: August 19, 2024 Dr. Marissa Baca MD Referring Provider Activ e Start: August 19, 2024 End: August 19, 2024 Bhargav Vang [employer], [employer] Primary Care Provider Active Start: August 19, 2024 End: August 19, 2024 [employer] Reporter Relationship Specialty Start Date End Date Bhargav Vang [address] [place] [address] PCP - General 08/26/16 Goals (unrecognized section and content) Goals may be documented in a n alternate section FOR RECORDS PERTAINING TO PATIENTS WHO ARE OR HAVE BEEN ENROLLED IN A CHEMICAL DEPENDENCY/SUBSTANCEABUSE PROGRAM, SOME INFORMATION MAY BE OMITTED. This clinical summary was aggregated from multiple sources. Caution should be exercised in using it in the provision of clinical care. This summary normalizes information from multiple sources, and as a consequence, information in this document may materially change the coding, format and clinical context of patient data. In addition, data may be omitted in some cases. CLINICAL DECISIONS SHOULD BE BASED ON THE PRIMARY CLINICAL RECORDS. [email or web address] provides no warranty or guarantee of the accuracy or completeness of information in this document.
[2025-02-02 22:51] LABS: Hematocrit 37.1 % (37-47); Hemoglobin 12.6 g/dL (12.0-15.0); Immature Granulocytes Count 0.010 X10^3/uL (0.0-0.0); Mean Corp Hgb Conc 34.0 g/dL (32-36); Mean Corpuscular Volume 93.0 fL (81-99); Mean Platelet Vol. 11.9 fl (6.2-12.0); NRBC Flagged by Analyzer 0 % (0-5); Platelet Count 225 K/mm3 (150-450); RBC Distribution Width CV 11.9 % (11.6-14.6); RBC Distribution Width SD 41.2 fl (35.1-43.9); Red Blood Count 3.99 M/mm3 (4.2-5.4); White Blood Count 5.3 K/mm3 (4.4-11.0)
[2025-02-02 23:48] LABS: Cholesterol 162 mg/dL (<=200); Low Density Lipoprotein Calc. 98 mg/dL; Triglycerides 81 mg/dL; Very Low Density Lipoprotein 16 mg/dL (5-40); cholesterol:hdl ratio screen 3.39
[2025-02-02 23:58] LABS: AST(SGOT) 16 U/L (<=31); Alanine Aminotransfer ALT/SGPT 12 U/L (<=34); Albumin, Serum 4.2 g/dL (3.5-5.0); Alkaline Phosphatase 40 U/L (35-104); Anion Gap 10 (5-15); BUN 16 mg/dL (4-19); BUN/Creat Ratio 22.3 RATIO (10-20); Calcium,Total 9.1 mg/dL (7.6-11.0); Carbon Dioxide 21.3 mmol/L (21.0-32.0); Chloride 106 mmol/L (98-108); Globulin 2.6 g/dL (2.2-4.2); Glucose 86 mg/dL (70-99); Potassium 4.1 mmol/L (3.3-5.1)
== END | disposition home or self-care (01) ==
PROVIDERS: PCP Nurse Practitioner; Referring Provider Nurse Practitioner; Visit Provider Nurse Practitioner
DX: Z00.00 Encounter for general adult medical examination without abnormal findings (principal)
CPT/HCPCS: 80053; 80061; 85025; 87491; 87591

== ENCOUNTER → 2025-04-21 | Outpatient (CLI) | payer OTHER, SELFPAY | END | disposition home or self-care (01) | PROVIDERS: PCP Nurse Practitioner; Referring Provider Nurse Practitioner; Visit Provider Nurse Practitioner | DX: Z20.2 Contact with and (suspected) exposure to infections with a predominantly sexual mode of transmission (principal) | CPT/HCPCS: 86695; 86696 ==

== ENCOUNTER → 2025-04-22 | Outpatient (CLI) | payer OTHER, SELFPAY | END | disposition home or self-care (01) | PROVIDERS: PCP Nurse Practitioner; Visit Provider Nurse Practitioner | DX: Z01.419 Encounter for gynecological examination (general) (routine) without abnormal findings (principal) | CPT/HCPCS: 88175; G0145 ==